=== PATIENT | male | born 1960 ===

== ENCOUNTER 2024-04-30 14:47 | Outpatient (BNV) | payer OTHER, BC, SELFPAY | END 2024-05-05 15:55 | PROVIDERS: Admitting Provider Psychiatry & Neurology Psychiatry; PCP Physician Assistant Medical; Responsible Provider Registered Nurse; Visit Provider Internal Medicine Cardiovascular Disease | DX: R07.9 Chest pain, unspecified (principal) | CPT/HCPCS: 93010 ==

== ENCOUNTER 2024-04-30 14:47 | Inpatient (IN) | payer OTHER, BC, SELFPAY ==
--- NOTE | ~2024-04-30 | CT_ITS ---
EXAMINATION: CT HEAD WITHOUT CONTRAST CLINICAL INFORMATION: Unwitnessed fall. 63-year-old male. COMPARISON: None available. TECHNIQUE: Contiguous axial imaging was performed from the skull base to vertex without intravenous administration of contrast. This CT examination was performed using dose optimization techniques as appropriate, variously including the following: *Automated exposure control *Adjustment of mA and/or kV according to patient size (this includes techniques or standardized protocols for targeted exams where dose is matched to indication/reason for exam; i.e. extremities or head) *Use of iterative reconstruction technique FINDINGS: There is no evidence of intracranial hemorrhage or extra-axial fluid collection. There is no mass effect, or edema. No CT evidence of acute territorial infarct. There is mild bilateral frontal lobe atrophy, out of proportion to the remainder of the brain. Otherwise, ventricles, sulci, and cisterns are normal in size and configuration for patient age. No hydrocephalus. No midline shift. Negative hyperdense MCA sign. Negative insular ribbon sign. Minimal low-density supratentorial white matter changes, in keeping with mild small vessel ischemia. Normal sella noted. Mild atheromatous calcification of the bilateral carotid siphons and V4 segments vertebral arteries bilaterally. Globes and orbital contents image normally. Extracranial soft tissues demonstrate a right paramedian occipital scalp subcutaneous nodule measuring 7 mm, most likely a sebaceous cyst. Moderate mucosal thickening seen throughout both maxillary and ethmoid sinuses, as well as within both frontal recesses. No definite air-fluid levels. The remainder of the paranasal sinuses, mastoid air cells, and tympanic cavities are normally aerated. No suspicious bony abnormalities. No fracture is seen. There are several maxillary periapical lucencies bilaterally. CT/CT head/brain wo IV con IMPRESSION: 1. No acute intracranial abnormalities. No fracture seen. 2. Mild bilateral frontal lobe atrophy. 3. Paranasal sinus disease maxillary and ethmoid sinuses. No definite air-fluid levels. Electronically signed by: Meek Oliveira MD 05/01/2024 09:14 AM [facility] [place] [place]
--- NOTE | ~2024-04-30 | XR_ITS ---
CLINICAL HISTORY: fall 3 view, pelvis and left hip Comparison: None Findings: No acute fracture or dislocation. No significant arthritic change. The soft tissues are unremarkable. IMPRESSION: No acute findings. This document has been electronically signed by: Jama Briones MD on 05/03/2024 19:26:17
[2024-04-30 15:01] VITALS: BP 170/83; PULSE 84; RESP 14; TEMP 37.4; O2SAT 95
[2024-04-30] MEDS: LORazepam 1 MG TABLET 3 MG PO (15:36)
--- NOTE | 2024-04-30 16:48 | HO.PM.IMCN ---
History of Present Illness Data of Consult Service Date: 04/30/24 Primary Care Provider: MOMO Escalona [facility] Reason for consult: Admission H&P Pt is a 63-year-old male with a PMH significant for HTN, HLD, insulin-dependent type 2 diabetes, GERD, alcohol dependence with history of alcohol withdrawal, depression, and anxiety who was admitted to M3 psych unit for increased depression with SI. Pt initially presented to [facility] while acutely intoxicated from alcohol. Hospitalist consult for medical admission H&P. Pt complains of auditory hallucinations. States he normally hears music when going through withdrawal. Also complains of increased anxiety and subjective fever and chills. No nausea or vomiting. Denies diaphoresis. No visual or tactile hallucinations. Denies shortness or breath or difficulty breathing. No chest pain/pressure, palpitations. Denies abdominal pain. Review of Systems Review of Systems: Negative except for that which is stated in the HPI [facility] Medical History (Updated 04/30/24 @ 17:59 by MOMO Tobar) Alcohol dependence GERD (gastroesophageal reflux disease) Insulin dependent type 2 diabetes mellitus HTN (hypertension) Social History Household Members: None Housing: House Do you presently have visiting nurse or other home services: No Patient Tobacco Use Status: Current everyday Tobacco user Tobacco use type: Cigarette Cigarettes Per Day: 5 Smoked in Last 30 Days: Yes Patient Interested in Nicotine Replacement: Yes Patient Given Instructions on How to Stop Smoking: Yes Date Education Initiated: 04/30/24 Second Hand Smoke Exposure: No Use of substances other than those prescribed or required for medical reasons: No Currently Displaying Signs/Symptoms of Drug Intoxication Withdrawal: No Any prior treatment program specific to substance use: No Have you been hit, kicked, punched, or otherwise hurt by someone within the past year? If so, by whom?: No Do you feel safe in your current relationship?: No Current Relationship Is there a partner from a previous relationship who is making you feel unsafe now?: No Are you made to feel afraid or neglected: No Advance Directives: No Advance Directives Information Provided: Yes Recently lost weight without trying: Yes How much weight loss: 2-13 pounds Eating poorly because of decreased appetite: No Nutrition screen score: 3 Poor oral hygiene: No Meds Allergies Allergy/AdvReac Type Severity Reaction Status Date / Time morphine Allergy Unknown Verified 04/30/24 15:21 Penicillins Allergy Unknown Verified 04/30/24 15:20 Active Medications: Current Medications Acetaminophen (Acetaminophen 325 Mg Tablet) 650 mg PO Q6H PRN PRN Reason: Headache/Pain Mild Scale (1-3) Al Hydroxide/Mg Hydroxide (Magnesium Hydrox/Alum Hydrox 30 Ml Oral.Susp) 30 ml PO Q6H PRN PRN Reason: Heartburn/Nausea Gabapentin (Gabapentin 300 Mg Capsule) 600 mg PO TID VALERI Glipizide (Glipizide 5 Mg Tablet) 5 mg PO BID VALERI Hydroxyzine HCl (Hydroxyzine Hcl 50 Mg Tablet) 50 mg PO TID VALERI Isosorbide Mononitrate (Isosorbide Mononitrate 30 Mg Tab.Er.24h) 30 mg PO QAM VALERI; Protocol Lorazepam (Lorazepam 1 Mg Tablet) 1 mg PO Q2H PRN PRN Reason: CIWA 8-11 Lorazepam (Lorazepam 1 Mg Tablet) 2 mg PO Q2H PRN PRN Reason: CIWA 12-15 Lorazepam (Lorazepam 1 Mg Tablet) 3 mg PO Q2H PRN PRN Reason: CIWA > 15, and call MD Last Admin: 04/30/24 15:36 Dose: 3 mg Magnesium Hydroxide (Milk Of Magnesia 30 Ml Oral.Susp) 30 ml PO DAILY PRN PRN Reason: Constipation Melatonin (Melatonin 3 Mg Tablet) 3 mg PO BEDTIME PRN PRN Reason: insomnia Metoprolol Succinate (Metoprolol Succinate Er 50 Mg Tab.Er.24h) 50 mg PO DAILY VALERI; Protocol Nicotine (Nicotine 21 Mg Patch.Td24) 21 mg TRANSDERMA DAILY [facility] Nicotine Polacrilex (Nicotine Polacrilex 2 Mg Gum) 4 mg BUCCAL Q2H PRN PRN Reason: Nicotine Cravings Non-Formulary Medication (Fenofibrate Nanocrystallized) 145 mg PO DAILY [facility] Non-Formulary Medication (Pantoprazole) 40 mg PO DAILY VALERI Non-Formulary Medication (Insulin Glargine-Yfgn [Semglee(Insulin Glarg-Yfgn)Pen]) 10 unit SUBCUT BEDTIME VALERI Quetiapine Fumarate (Quetiapine Fumarate 200 Mg Tablet) 200 mg PO BEDTIME VALERI Sertraline HCl (Sertraline Hcl 50 Mg Tablet) 50 mg PO DAILY VALERI Thiamine HCl (Thiamine Hcl 100 Mg Tablet) 100 mg PO DAILY [facility] Trazodone HCl (Trazodone Hcl 100 Mg Tablet) 200 mg PO BEDTIME VALERI Home Medications ?Medication ?Instructions ?Recorded ?Confirmed ?Last Taken ?Type fenofibrate nanocrystallized 145 145 mg PO DAILY 04/30/24 04/30/24 History mg tablet fenofibrate nanocrystallized 145 145 mg PO DAILY 04/30/24 04/30/24 04/30/24 History mg tablet gabapentin 300 mg capsule 300 mg PO TID 04/30/24 04/30/24 04/30/24 History glipizide 5 mg tablet 5 mg PO BID 04/30/24 04/30/24 04/30/24 History hydroxyzine pamoate 50 mg capsule 50 mg PO TID 04/30/24 04/30/24 Unknown History insulin glargine-yfgn 100 unit/mL 10 unit subcut BEDTIME 04/30/24 04/30/24 Unknown History (3 mL) subcutaneous pen (Semglee (insulin glargine-yfgn) Pen) isosorbide mononitrate 30 mg 30 mg PO QAM 04/30/24 04/30/24 History tablet,extended release 24 hr isosorbide mononitrate 30 mg 30 mg PO QAM 04/30/24 04/30/24 04/30/24 History tablet,extended release 24 hr melatonin 3 mg tablet 3 mg PO BEDTIME PRN insomnia 04/30/24 04/30/24 Unknown History metoprolol succinate 50 mg 50 mg PO DAILY 04/30/24 04/30/24 04/30/24 History tablet,extended release 24 hr pantoprazole 40 mg tablet,delayed 40 mg PO DAILY acid reflux 04/30/24 04/30/24 Unknown History release quetiapine 200 mg tablet 200 mg PO BEDTIME 04/30/24 04/30/24 Unknown History sertraline 50 mg tablet 50 mg PO DAILY 04/30/24 04/30/24 Unknown History trazodone 100 mg tablet 200 mg PO BEDTIME 04/30/24 04/30/24 Unknown History Physical Exam Vital Signs and Narrative: Vital Signs: Last Vital Signs Temp 99.4 F 04/30/24 15:01 Pulse 84 04/30/24 15:01 Resp 14 04/30/24 15:01 BP 170/83 H 04/30/24 15:01 Pulse Ox 95 04/30/24 15:01 O2 Del Method Room Air 04/30/24 15:01 General: AOx3, no acute distress Resp: CTA bilaterally CVS: S1, S2, RRR GI: +BS, NT, no distention Skin: Warm, dry Neuro: Cranial nerves II-XII grossly intact bilaterally. Motor grossly intact bilaterally Extremities: No edema Psych: Flat affect Results Labs 04/30/24 16:41 Assessment and Plan (1) Medical clearance for psychiatric admission: Status: Acute Plan Pt is a 63-year-old male with a PMH significant for HTN, HLD, insulin-dependent type 2 diabetes, peripheral neuropathy, GERD, alcohol dependence with history of alcohol withdrawal, depression, and anxiety who was admitted to M3 psych unit for increased depression with SI. Pt initially presented to [facility] ED while acutely intoxicated from alcohol. Hospitalist consult for medical admission H&P. Mood disorder Plan as per psychiatry HTN Continue metoprolol Insulin-dependent type 2 diabetes Continue glipizide, Lantus Will place on sliding scale insulin Encourage diabetic diet and diabetic snacking HLD Continue fenofibrate Peripheral neuropathy Continue gabapentin Thank you for allowing us to participate in the care of this patient. Signing off at this time. Please re-consult if any acute complaints or issues arise.
[2024-04-30 17:04] LABS: Alanine Aminotransferase 19 U/L (0-40); Albumin Level 4.1 g/dL (3.5-5.0); Alkaline Phosphatase 70 U/L (39-117); Anion Gap 10 (12-20); Aspartate Amino Transferase 38 U/L (5-37); Bilirubin Total 1.1 mg/dL (0.0-1.0); Blood Urea Nitrogen 15 mg/dL (9-16); Calcium 8.7 mg/dL (8.4-10.2); Carbon Dioxide 26 mmol/L (22-29); Chloride 102 mmol/L (96-108); Estimated Glomerular Filt Rate > 60; Glucose Random 107 mg/dL (60-115); Potassium 3.5 mmol/L (3.3-5.1); Sodium 134 mmol/L (135-145); Total Protein 6.6 g/dL (6.5-8.0)
[2024-04-30] MEDS: hydrOXYzine HCL 50 MG TABLET PO ×2 (17:28→21:12)
[2024-04-30] MEDS: Gabapentin 300 MG CAPSULE 600 MG PO ×2 (17:28→21:12)
[2024-04-30] MEDS: LORazepam 1 MG TABLET 2 MG PO (17:29)
[2024-04-30 17:48] VITALS: BMI 31.9
--- NOTE | 2024-04-30 18:58 | PC.ADMIT ---
Michael is a 63 y/o male that? was admitted to M3 at 1455 from [facility] on CV for treatment of MDD and ETOH use d/o.? Precipitant of admission include? a recent increase in ETOH and suicidal thoughts with a plan by O?D on medications, Pt called his RN at the OR and expressed his feelings of wanting to kill himself. Pt currently lives alone in his home. Hx of suicide attempts by drinking etoh and taking sudafed and trazodone a month ago.? Pt denied Si or HI at this time, pt stated ?I feel safe here so far?.? Pt was alert and oriented x3. Pt was calm and cooperative with the admission process.? Mood is depressed.? Affect is sad and anxious. Pt was tearful at times throughout the assessment. Pt reported goal of admission was to ?stop this stupidity I keep doing?.? Pt reported AH where he hears music playing.? Hx of PTSD.? Pt reported a 10lb unintentional weight loss recently.? Thought process is linear.? Pt reported the last drink was before admission on 04/29/24, he had about 2 pints of rum. BAL 361. Pt reported hx of seizures w/ withdrawal.? Pt has a hx of HTN, acid reflux, diabetes and R aortic stent.? Pt was placed on 5 min checks for safety. Pt was compliant with skin check, R madrigal and upper leg healing scabs r/t recent falls. Pt has an allergy to morphine and penicillins.?? Declined Flu shot, already immunized this season.? Pt was placed on a CIWA Q2H. Scored an 18 and 12.? POC QID.? Pt reported multiple falls recently.
[2024-04-30 20:00] VITALS: BP 150/72; PULSE 77; RESP 16; TEMP 37.9; O2SAT 95
[2024-04-30 20:28] LABS: Glucose, Whole Blood 169 mg/dL (60-115)
[2024-04-30] MEDS: Insulin Glargine,Hum.rec.anlog 100 UNIT/ML 10 ML VIAL 10 UNIT SUBCUT (21:10)
[2024-04-30] MEDS: Insulin Lispro 100 UNIT/ML 3 ML VIAL SUBCUT (21:11)
[2024-04-30] MEDS: glipiZIDE 5 MG TABLET PO (21:12)
[2024-04-30] MEDS: LORazepam 1 MG TABLET PO (21:12)
[2024-04-30] MEDS: traZODone HCL 100 MG TABLET 200 MG PO (21:12)
[2024-04-30] MEDS: QUEtiapine Fumarate 200 MG TABLET PO (21:12)
--- NOTE | 2024-04-30 23:18 | PC.NURSE ---
Manuelmaribell has order for CPAP @ HS, Respiratory called several times during the shift, reported to be actively in an emergency in ER, message left to call unit R/T CPAP application. Patient experiencing no issues and was unaware that he was ordered to have CPAP placed. Will F/U with Respiratory again.
[2024-05-01 01:30] VITALS: RESP 16
[2024-05-01] MEDS: LORazepam 1 MG TABLET 2 MG PO ×4 (06:16→20:40)
[2024-05-01] MEDS: Omeprazole 20 MG CAPSULE.DR PO (06:17)
--- NOTE | 2024-05-01 06:22 | PC.NURSE ---
Michael was observed on the floor on laying on his left side ! 604 when staff entered to give morning med and to complete CIWA assessment. He stated he got up to go the BR and after using while standing at the sink to wash his hands he lost his balance. Fall assessment completed, FROM all extremities, no bruising or hematoma, skin integrity intact, A/O x 2, VS taken, ambulation unsteady D/T ETOH withdrawal, assisted to bed, dry clothes and bed linen changed. On-Call MD Burr, Morphologist Prerna and Hospitalist Dr. Yuan updated. Dr. Yuan on unit @ 0640 to assess, CT head to be ordered.
--- NOTE | 2024-05-01 06:42 | PM.EVENT ---
Event Note Date of Service: 05/01/24 Event Note: Was notified by the nurse that the patient had an unwitnessed fall. States he was in the bathroom when he fell as he lost his balance. Denies chest pain or palpitations prior to the fall. Denies jerking movement of extremities. No tongue bite. No lightheadedness prior to the fall. Did not lose consciousness prior to the fall. Will obtain CT head as he hit his head Time Spent With Patient Time: Total time managing care of this patient today ____ minutes.
[2024-05-01 07:59] LABS: Glucose, Whole Blood 112 mg/dL (60-115)
[2024-05-01 08:26] VITALS: BP 179/91; PULSE 72; RESP 16; TEMP 36.8; O2SAT 95
[2024-05-01] MEDS: Nicotine 21 MG PATCH.TD24 TRANSDERMA (09:20)
[2024-05-01] MEDS: Thiamine HCL 100 MG TABLET PO (09:20)
[2024-05-01] MEDS: Metoprolol Succinate ER 50 MG TAB.ER.24H PO (09:20)
[2024-05-01] MEDS: Sertraline HCL 50 MG TABLET PO (09:20)
[2024-05-01] MEDS: Gabapentin 300 MG CAPSULE 600 MG PO ×3 (09:20→20:40)
[2024-05-01] MEDS: glipiZIDE 5 MG TABLET PO ×2 (09:21→20:39)
[2024-05-01] MEDS: Isosorbide Mononitrate 30 MG TAB.ER.24H PO (09:21)
[2024-05-01] MEDS: hydrOXYzine HCL 50 MG TABLET PO ×3 (09:22→20:40)
--- NOTE | 2024-05-01 09:27 | P.HPPS_ITS ---
HPI Date of Service: 05/01/24 Chief Complaint: Unspec depressive disorder, unspec alcohol use d/o Sources of Information: patient interviewed, chart reviewed and crisis/core team assessment reviewed HPI Subjective Notes: Brito Warning and Conditional Voluntary Narrative: Patient is a 63-year-old male with history MDD and alcohol use disorder who presented to [facility] ER via ambulance due to suicidal ideation and alcohol use. Called [place] nurse and stating he wanted to kill himself. Per crisis report, patient reports he had a plan to take pills but denied intent. He reported drinking a pint and a half of rum prior to arrival to ED. patient reports drinking a pint and a half daily. History of suicide attempt a month ago via overdose on trazodone and Sudafed and was admitted to [facility]. When asked what triggered the intentional overdose patient stated the holidays . Denies HI /. During admission assessment, patient was in and out falling asleep. Difficult to understand at times due to mumbling. He reports depression and anxiety and states that when he is intoxicated he becomes suicidal. When discussing his sleep patient reports he usually passes out from drinking . He reports not eating well and forgetting to take his medications daily. He reports drinking a pt and a half of rum daily for the last 5 years. Denies any other substance use. History of alcohol withdrawal seizures. Currently on CIWA protocol. Per nursing patient has fallen twice in the last 24 hours; was placed on 1:1 and PT consult was placed to determine need for walker. Nursing to obtain orthos. Past Psychiatric History: hx of SA via OD on trazodone and Sudafed (March 2024) History of inpatient psychiatric admissions most recently at [facility] month ago. History of detox admissions. Patient reports he goes to the [place] on [facility] in [place] for outpatient services and recently started seeing a therapist named Brad Alvarez. Medical Evaluation Reviewed: Yes [facility] Medical History (Updated 05/01/24 @ 15:09 by Tammy Katz NP) Alcohol dependence GERD (gastroesophageal reflux disease) Insulin dependent type 2 diabetes mellitus HTN (hypertension) Family History: unknown Social History: lives alone. . 3 kids. works as investment accountant. Substance History: Drinks a pint and half of alcohol daily. Denies any other substance use. Trauma History: Denies Diagnostics Vital Signs (24Hr): Vital Signs - 24 hr 04/30/24 15:01 04/30/24 20:00 05/01/24 08:26 Temperature 99.4 F 100.3 F 98.2 F Pulse Rate 84 77 72 Respiratory Rate 14 16 16 Blood Pressure 170/83 H 150/72 H 179/91 H Pulse Oximetry 95 95 95 Oxygen Delivery Method Room Air Room Air Room Air BMI result Body Mass Index 31.9 Labs 04/30/24 16:41 Labs: Laboratory Results - last 48 hr 04/30/24 04/30/24 05/01/24 16:41 20:24 07:51 Sodium 134 L Potassium 3.5 Chloride 102 Carbon Dioxide 26 Anion Gap 10 L BUN 15 Creatinine 0.90 Estim Creat Clear Calc TNP Estimated GFR > 60 POC Glucose 169 H 112 Random Glucose 107 Calcium 8.7 Total Bilirubin 1.1 H AST 38 H ALT 19 Alkaline Phosphatase 70 Total Protein 6.6 Albumin 4.1 Imaging Radiology Impressions: ITS Impressions Head CT 05/01/24 08:49 IMPRESSION: 1. No acute intracranial abnormalities. No fracture seen. 2. Mild bilateral frontal lobe atrophy. 3. Paranasal sinus disease maxillary and ethmoid sinuses. No definite air-fluid levels. Electronically signed by: Meek Oliveira MD 05/01/2024 09:14 AM [facility] [place] [place] Meds/Allergies Meds Home Medications ?Medication ?Instructions ?Recorded ?Confirmed ?Type fenofibrate nanocrystallized 145 145 mg PO DAILY 04/30/24 History mg tablet fenofibrate nanocrystallized 145 145 mg PO DAILY 04/30/24 04/30/24 History mg tablet gabapentin 300 mg capsule 300 mg PO TID 04/30/24 04/30/24 History glipizide 5 mg tablet 5 mg PO BID 04/30/24 04/30/24 History hydroxyzine pamoate 50 mg capsule 50 mg PO TID 04/30/24 04/30/24 History insulin glargine-yfgn 100 unit/mL 10 unit subcut BEDTIME 04/30/24 04/30/24 History (3 mL) subcutaneous pen (Semglee (insulin glargine-yfgn) Pen) isosorbide mononitrate 30 mg 30 mg PO QAM 04/30/24 History tablet,extended release 24 hr isosorbide mononitrate 30 mg 30 mg PO QAM 04/30/24 04/30/24 History tablet,extended release 24 hr melatonin 3 mg tablet 3 mg PO BEDTIME PRN insomnia 04/30/24 04/30/24 History metoprolol succinate 50 mg 50 mg PO DAILY 04/30/24 04/30/24 History tablet,extended release 24 hr pantoprazole 40 mg tablet,delayed 40 mg PO DAILY acid reflux 04/30/24 04/30/24 History release quetiapine 200 mg tablet 200 mg PO BEDTIME 04/30/24 04/30/24 History sertraline 50 mg tablet 50 mg PO DAILY 04/30/24 04/30/24 History trazodone 100 mg tablet 200 mg PO BEDTIME 04/30/24 04/30/24 History Allergies Allergies Allergy/AdvReac Type Severity Reaction Status Date / Time morphine Allergy Unknown Verified 04/30/24 15:21 Penicillins Allergy Unknown Verified 04/30/24 15:20 Mental Status Exam Mental Status Exam Patient Appearance: Disheveled Patient Orientation: Person, Place and Situation Level of Consciousness: Drowsy Patient Behavior: Cooperative and Sedated Mood Description: Blunted Affect Description: Blunted Ability to Follow Directions: Good Speech Pattern: Mumbled Hallucinations: None Delusions: Not Present Thought Process: Intact Thought Content: positive for Intact Judgement: Poor Assessment & Plan Assessment & Plan (1) MDD (major depressive disorder), recurrent episode, severe: Status: Acute Code(s): F33.2 - Major depressive disorder, recurrent severe without psychotic features (2) Alcohol use disorder: Status: Acute Code(s): F10.90 - Alcohol use, unspecified, uncomplicated Plan Patient is a 63-year-old male with history MDD and alcohol use disorder who presented to [facility] ER via ambulance due to suicidal ideation and alcohol use[facility] and stating [facility] himself. Plan: CV 1:1 Continue home medications [place] protocol Obtain collateral Encourage groups Consult to PT to determine need for walker Consult to addiction medicine Discharge planning Patient educated on: diagnosis, medication risk/benefits and substance abuse Reason for continued inpatient stay Substantial Risk for: harm to self and med/psych decompensation Statement Statement: I have reviewed the history and physical and performed a pertinent examination on my patient. No changes have occurred unless specified. If the History and Physical was not performed prior to admission, the Hospitalist's service will be consulted for completing the admission physical. Time Spent With Patient Time: Total time managing care of this patient today _60___ minutes.
[2024-05-01] MEDS: Fenofibrate 160 MG TABLET PO (10:21)
[2024-05-01 11:35] LABS: Glucose, Whole Blood 138 mg/dL (60-115)
[2024-05-01] MEDS: Ondansetron ODT 8 MG TAB.RAPDIS TRANSLINGU (11:50)
[2024-05-01] MEDS: LORazepam 1 MG TABLET PO ×2 (11:50→18:10)
[2024-05-01] MEDS: Ibuprofen 600 MG TABLET PO (11:50)
--- NOTE | 2024-05-01 13:15 | MHC.CLN ---
RE: CONSULT HT 5'10 WT 222# IBW 166+/-10% PT IS 134% IBW INDICATES OBESE FOR HT BMI 31.9 OBESE PT WITH NO PREVIOUS WT HX PT REPORTS 10# WT LOSS STUDENT ACTIVITIES DIRECTOR, NOT A SIGNIFICANT WT CHANGE REGULAR DIET REVIEWED LABS-UNREMARKABLE SKIN INTACT MONITOR PO INTAKE IF PO INTAKE <25% X 3 DAYS, RECOMMEND ADDING SUPPLEMENT: ENSURE BID NO NEW ORDERS AT THIS TIME
--- NOTE | 2024-05-01 13:47 | PC.NURSE ---
Pt had a fall in room after getting out of his chair. Pt stood up and became shaky according to 1:1. Staff slowed fall backwards, lowering pt to the floor. Pt reports feeling dizzy . MD notified and PT consult to be placed r/t de-conditioning. Ortho BP checked, sitting 139/83 P 88, Standing BP 127/73 P91. Pt reported mild left buttock pain, but reported after moving that he was ok. Pt had no visible injury.
[2024-05-01 16:00] VITALS: BP 148/82; PULSE 73
[2024-05-01 17:25] LABS: Glucose, Whole Blood 113 mg/dL (60-115)
[2024-05-01 20:00] VITALS: BP 148/88; BP 153/96; PULSE 72; RESP 16; TEMP 36.8; O2SAT 94
[2024-05-01 20:04] LABS: Glucose, Whole Blood 150 mg/dL (60-115)
[2024-05-01] MEDS: Insulin Glargine,Hum.rec.anlog 100 UNIT/ML 10 ML VIAL 10 UNIT SUBCUT (20:39)
[2024-05-01] MEDS: traZODone HCL 100 MG TABLET 200 MG PO (20:40)
[2024-05-01] MEDS: Acetaminophen 325 MG TABLET 650 MG PO (20:40)
[2024-05-01] MEDS: QUEtiapine Fumarate 200 MG TABLET PO (20:40)
[2024-05-02] VITALS (9 sets, daily range): BP systolic 120–178; BP diastolic 69–96; PULSE 62–86; RESP 13–18; TEMP 36.3–37; O2SAT 90–95
[2024-05-02] MEDS: Omeprazole 20 MG CAPSULE.DR PO (05:57)
[2024-05-02] MEDS: LORazepam 1 MG TABLET PO ×4 (05:57→23:22)
[2024-05-02] MEDS: LORazepam 1 MG TABLET 2 MG PO ×3 (08:20→20:40)
[2024-05-02] MEDS: Fenofibrate 160 MG TABLET PO (08:20)
[2024-05-02] MEDS: Isosorbide Mononitrate 30 MG TAB.ER.24H PO (08:21)
[2024-05-02] MEDS: Metoprolol Succinate ER 50 MG TAB.ER.24H PO (08:21)
[2024-05-02] MEDS: Gabapentin 300 MG CAPSULE 600 MG PO ×3 (08:21→20:40)
[2024-05-02] MEDS: Sertraline HCL 50 MG TABLET PO (08:22)
[2024-05-02] MEDS: glipiZIDE 5 MG TABLET PO ×2 (08:22→17:05)
[2024-05-02] MEDS: Thiamine HCL 100 MG TABLET PO (08:22)
[2024-05-02] MEDS: hydrOXYzine HCL 50 MG TABLET PO ×2 (08:22→20:40)
[2024-05-02] MEDS: Nicotine 21 MG PATCH.TD24 TRANSDERMA (08:23)
[2024-05-02 08:26] LABS: Glucose, Whole Blood 133 mg/dL (60-115)
[2024-05-02 08:35] LABS: Cholesterol 193 mg/dL (<200); HDL Cholesterol 53 mg/dL (>40); LDL Cholesterol Calculated 80 mg/dL (<100); Triglycerides 301 mg/dL (<150)
--- NOTE | 2024-05-02 10:51 | HO.PSYCHPN ---
Subjective Subjective Date of Service: 05/02/24 Reason For Visit: Unspec depressive disorder, unspec alcohol use d/o Subjective Notes: Conditional Voluntary Interim History: Continues similar to yesterday. continues scoring on CIWA. disheveled. patient in and out falling asleep. Difficult to understand at times due to low volume in speech and mumbling. Pt stated he just wants to sleep ; will continue on CIWA. Decrease hydroxyzine to 50mg PO BID. Medication Compliance: Yes Side effects from medications: No Attending Groups: No Review of Systems Constitutional: Reports as per HPI Eyes: Reports as per HPI Reports as per HPI Cardiovascular: Reports as per HPI Respiratory: Reports as per HPI Gastrointestinal: Reports as per HPI Genitourinary: Reports as per HPI Musculoskeletal: Reports as per HPI Skin/Breast: Reports as per HPI Reports as per HPI Psychiatric: Reports as per HPI Endocrine: Reports as per HPI Hematologic/Lymphatic: Reports as per HPI Allergic/Immunologic: Reports as per HPI Mental Status Exam Mental Status Exam Patient Appearance: Disheveled Patient Orientation: Person, Place and Situation Level of Consciousness: Drowsy Patient Behavior: Sedated and Fatigued Mood Description: Blunted Affect Description: Blunted Ability to Follow Directions: Good Speech Pattern: Soft-Spoken and Mumbled Diagnostics Vital Signs (24Hr): Vital Signs - 24 hr 05/01/24 16:00 05/01/24 20:00 05/01/24 20:00 Temperature 98.3 F Pulse Rate 73 72 72 Respiratory Rate 16 Blood Pressure 148/82 H 148/88 H 153/96 H Pulse Oximetry 94 Oxygen Delivery Method Room Air 05/02/24 00:00 05/02/24 08:00 05/02/24 08:00 Temperature 98.3 F Pulse Rate 86 62 62 Respiratory Rate 14 Blood Pressure 132/79 172/77 H 172/77 H Pulse Oximetry 94 Oxygen Delivery Method Room Air 05/02/24 10:31 Temperature 97.4 F Pulse Rate 70 Respiratory Rate 14 Blood Pressure 120/69 Pulse Oximetry 90 L Oxygen Delivery Method Room Air BMI result Body Mass Index 31.9 Labs 04/30/24 16:41 Labs: Laboratory Results - last 48 hr 04/30/24 04/30/24 05/01/24 16:41 20:24 07:51 Sodium 134 L Potassium 3.5 Chloride 102 Carbon Dioxide 26 Anion Gap 10 L BUN 15 Creatinine 0.90 Estim Creat Clear Calc TNP Estimated GFR > 60 POC Glucose 169 H 112 Random Glucose 107 Calcium 8.7 Total Bilirubin 1.1 H AST 38 H ALT 19 Alkaline Phosphatase 70 Total Protein 6.6 Albumin 4.1 Triglycerides Cholesterol LDL Cholesterol, Calc HDL Cholesterol 05/01/24 05/01/24 05/01/24 11:28 17:18 19:59 Sodium Potassium Chloride Carbon Dioxide Anion Gap BUN Creatinine Estim Creat Clear Calc Estimated GFR POC Glucose 138 H 113 150 H Random Glucose Calcium Total Bilirubin AST ALT Alkaline Phosphatase Total Protein Albumin Triglycerides Cholesterol LDL Cholesterol, Calc HDL Cholesterol 05/02/24 05/02/24 08:11 08:18 Sodium Potassium Chloride Carbon Dioxide Anion Gap BUN Creatinine Estim Creat Clear Calc Estimated GFR POC Glucose 133 H Random Glucose Calcium Total Bilirubin AST ALT Alkaline Phosphatase Total Protein Albumin Triglycerides 301 H Cholesterol 193 LDL Cholesterol, Calc 80 HDL Cholesterol 53 Imaging Radiology Impressions: ITS Impressions Head CT 05/01/24 08:49 IMPRESSION: 1. No acute intracranial abnormalities. No fracture seen. 2. Mild bilateral frontal lobe atrophy. 3. Paranasal sinus disease maxillary and ethmoid sinuses. No definite air-fluid levels. Electronically signed by: Meek Oliveira MD 05/01/2024 09:14 AM [facility] Medications Current Medications Acetaminophen (Acetaminophen 325 Mg Tablet) 650 mg PO Q6H PRN PRN Reason: Headache/Pain Mild Scale (1-3) Last Admin: 05/01/24 20:40 Dose: 650 mg Al Hydroxide/Mg Hydroxide (Magnesium Hydrox/Alum Hydrox 30 Ml Oral.Susp) 30 ml PO Q6H PRN PRN Reason: Heartburn/Nausea Fenofibrate (Fenofibrate 160 Mg Tablet) 160 mg PO DAILY [facility] Last Admin: 05/02/24 08:20 Dose: 160 mg Gabapentin (Gabapentin 300 Mg Capsule) 600 mg PO TID [facility] Last Admin: 05/02/24 08:21 Dose: 600 mg Glipizide (Glipizide 5 Mg Tablet) 5 mg PO BID [facility] Last Admin: 05/02/24 08:22 Dose: 5 mg Glucose (Glucose Gel 15 Gm Gel..Gram.) 15 gm PO Q15M PRN; Protocol PRN Reason: per Hypoglycemia Standing Ord. Hydroxyzine HCl (Hydroxyzine Hcl 50 Mg Tablet) 50 mg PO TID [facility] Last Admin: 05/02/24 08:22 Dose: 50 mg Dextrose (D10) 250 mls @ 750 mls/hr IV Q15M PRN; Protocol PRN Reason: per Hypoglycemia Standing Ord. Ibuprofen (Ibuprofen 600 Mg Tablet) 600 mg PO Q8H PRN PRN Reason: Pain, Moderate(Pain Scale 4-6) Last Admin: 05/01/24 11:50 Dose: 600 mg Insulin Glargine (Insulin Glargine,Hum.Rec.Anlog 100 Unit/Ml 10 Ml Vial) 10 unit SUBCUT BEDTIME [facility] Last Admin: 05/01/24 20:39 Dose: 10 unit Insulin Human Lispro (Insulin Lispro 100 Unit/Ml 3 Ml Vial) 0 unit SUBCUT QIDACHS [facility]; Protocol Last Admin: 05/02/24 08:29 Dose: Not Given Isosorbide Mononitrate (Isosorbide Mononitrate 30 Mg Tab.Er.24h) 30 mg PO DAILY [facility]; Protocol Last Admin: 05/02/24 08:21 Dose: 30 mg Lorazepam (Lorazepam 1 Mg Tablet) 1 mg PO Q2H PRN PRN Reason: CIWA 8-11 Last Admin: 05/02/24 05:57 Dose: 1 mg Lorazepam (Lorazepam 1 Mg Tablet) 2 mg PO Q2H PRN PRN Reason: CIWA 12-15 Last Admin: 05/02/24 08:20 Dose: 2 mg Lorazepam (Lorazepam 1 Mg Tablet) 3 mg PO Q2H PRN PRN Reason: CIWA > 15, and call Last Admin: 04/30/24 15:36 Dose: 3 mg Magnesium Hydroxide (Milk Of Magnesia 30 Ml Oral.Susp) 30 ml PO DAILY PRN PRN Reason: Constipation Melatonin (Melatonin 3 Mg Tablet) 3 mg PO BEDTIME PRN PRN Reason: insomnia Metoprolol Succinate (Metoprolol Succinate Er 50 Mg Tab.Er.24h) 50 mg PO DAILY [facility]; Protocol Last Admin: 05/02/24 08:21 Dose: 50 mg Nicotine (Nicotine 21 Mg Patch.Td24) 21 mg TRANSDERMA DAILY [facility] Last Admin: 05/02/24 08:23 Dose: 21 mg Nicotine Polacrilex (Nicotine Polacrilex 2 Mg Gum) 4 mg BUCCAL Q2H PRN PRN Reason: Nicotine Cravings Omeprazole (Omeprazole 20 Mg Capsule.Dr) 20 mg PO DAILY@0630 [facility] Last Admin: 05/02/24 05:57 Dose: 20 mg Ondansetron HCl (Ondansetron Odt 8 Mg Tab.Rapdis) 8 mg TRANSLINGU Q12H PRN PRN Reason: Nausea and Vomiting Last Admin: 05/01/24 11:50 Dose: 8 mg Quetiapine Fumarate (Quetiapine Fumarate 200 Mg Tablet) 200 mg PO BEDTIME [facility] Last Admin: 05/01/24 20:40 Dose: 200 mg Sertraline HCl (Sertraline Hcl 50 Mg Tablet) 50 mg PO DAILY [facility] Last Admin: 05/02/24 08:22 Dose: 50 mg Thiamine HCl (Thiamine Hcl 100 Mg Tablet) 100 mg PO DAILY [facility] Last Admin: 05/02/24 08:22 Dose: 100 mg Trazodone HCl (Trazodone Hcl 100 Mg Tablet) 200 mg PO BEDTIME [facility] Last Admin: 05/01/24 20:40 Dose: 200 mg Allergies Allergies Allergy/AdvReac Type Severity Reaction Status Date / Time morphine Allergy Unknown Verified 04/30/24 15:21 Penicillins Allergy Unknown Verified 04/30/24 15:20 Assessment & Plan Assessment & Plan (1) MDD (major depressive disorder), recurrent episode, severe: Status: Acute Code(s): F33.2 - Major depressive disorder, recurrent severe without psychotic features (2) Alcohol use disorder: Status: Acute Code(s): F10.90 - Alcohol use, unspecified, uncomplicated Plan Patient is a 63-year-old male with history MDD and alcohol use disorder who presented to [facility] ER via ambulance due to suicidal ideation and alcohol use. [facility] and stating he [facility] himself. Plan: CV 1:1 Continue home medications CIWA protocol Obtain collateral Encourage groups Consult to PT to determine need for walker Consult to addiction medicine Discharge planning 05/02: Continues similar to yesterday. continues scoring on CIWA. disheveled. patient in and out falling asleep. Difficult to understand at times due to low volume in speech and mumbling. Pt stated he just wants to sleep ; will continue on CIWA. Decrease hydroxyzine to 50mg PO BID. Patient educated on: medication risk/benefits Reason for continued inpatient stay Substantial Risk for: med/psych decompensation Time Spent With Patient Time: Total time managing care of this patient today _20___ minutes.
[2024-05-02 11:57] LABS: Glucose, Whole Blood 169 mg/dL (60-115)
[2024-05-02] MEDS: Insulin Lispro 100 UNIT/ML 3 ML VIAL SUBCUT (12:18)
--- NOTE | 2024-05-02 14:21 | PM.EVENT ---
Event Note Date of Service: 05/02/24 Event Note: Addiction consult placed for patient with AUD to discussed medication options Chart reviewed, patient still scoring on CIWA and receiving withdrawal medications Will see on Sunday Time Spent With Patient Time: Total time managing care of this patient today ____ minutes.
[2024-05-02 16:49] LABS: Glucose, Whole Blood 118 mg/dL (60-115)
[2024-05-02 20:34] LABS: Glucose, Whole Blood 143 mg/dL (60-115)
[2024-05-02] MEDS: Melatonin 3 MG TABLET PO (20:40)
[2024-05-02] MEDS: traZODone HCL 100 MG TABLET 200 MG PO (20:40)
[2024-05-02] MEDS: QUEtiapine Fumarate 200 MG TABLET PO (20:40)
[2024-05-02] MEDS: Insulin Glargine,Hum.rec.anlog 100 UNIT/ML 10 ML VIAL 10 UNIT SUBCUT (20:47)
[2024-05-03] VITALS (8 sets, daily range): BP systolic 162–191; BP diastolic 81–102; PULSE 65–83; RESP 18–22; TEMP 36.7; O2SAT 91–97
[2024-05-03] MEDS: LORazepam 1 MG TABLET PO ×2 (03:51→11:21)
[2024-05-03 05:58] LABS: Glucose, Whole Blood 170 mg/dL (60-115)
[2024-05-03] MEDS: Omeprazole 20 MG CAPSULE.DR PO (07:00)
[2024-05-03 07:45] LABS: Glucose, Whole Blood 135 mg/dL (60-115)
[2024-05-03] MEDS: hydrOXYzine HCL 50 MG TABLET PO ×2 (08:40→18:58)
[2024-05-03] MEDS: Isosorbide Mononitrate 30 MG TAB.ER.24H PO (08:40)
[2024-05-03] MEDS: Thiamine HCL 100 MG TABLET PO (08:40)
[2024-05-03] MEDS: Sertraline HCL 50 MG TABLET PO (08:40)
[2024-05-03] MEDS: Fenofibrate 160 MG TABLET PO (08:40)
[2024-05-03] MEDS: Gabapentin 300 MG CAPSULE 600 MG PO ×3 (08:41→18:58)
[2024-05-03] MEDS: Nicotine 21 MG PATCH.TD24 TRANSDERMA (08:41)
[2024-05-03] MEDS: Metoprolol Succinate ER 50 MG TAB.ER.24H PO (08:41)
[2024-05-03] MEDS: glipiZIDE 5 MG TABLET PO ×2 (08:41→18:58)
--- NOTE | 2024-05-03 11:31 | P.PNPSI_ITS ---
Subjective Subjective Date of Service: 05/03/24 Reason For Visit: Unspec depressive disorder, unspec alcohol use d/o Subjective Notes: Conditional Voluntary Interim History: The nursing staff reported the patient remains on CIWA protocol every 2 hours. He had been incontinent of urine yesterday. He remains pleasant and cooperative but on one-to-one for fall risk. On interview the patient reported that he is feeling okay but he looks very impaired. We are changing the CIWA to q.4 hours. Mental Status Exam Mental Status Exam Patient Appearance: Appropriate and Unkempt Patient Orientation: Person and Situation Level of Consciousness: Awake Patient Behavior: Passive Mood Description: Withdrawn Affect Description: Constricted Ability to Follow Directions: Good Speech Pattern: Impoverished Hallucinations: None Delusions: Not Present Thought Process: Distracted and Slowed Thinking Thought Content: positive for [place] and positive for Poverty of Content Judgement: Poor Diagnostics Vital Signs (24Hr): Vital Signs - 24 hr 05/02/24 12:00 05/02/24 14:43 05/02/24 16:00 Temperature 97.8 F Pulse Rate 65 62 66 Respiratory Rate 14 Blood Pressure 158/90 H 124/76 178/96 H Pulse Oximetry 94 Oxygen Delivery Method Room Air 05/02/24 18:42 05/02/24 19:40 05/02/24 20:30 Temperature 97.7 F 98.6 F Pulse Rate 65 67 70 Respiratory Rate 13 18 Blood Pressure 176/88 H 162/84 H 155/82 H Pulse Oximetry 95 94 Oxygen Delivery Method Room Air Room Air 05/03/24 01:49 05/03/24 03:43 05/03/24 08:30 Temperature Pulse Rate 65 71 Respiratory Rate 18 Blood Pressure 162/81 H 190/102 H Pulse Oximetry Oxygen Delivery Method BMI result Body Mass Index 31.9 Labs 04/30/24 16:41 Labs: Laboratory Results - last 48 hr 05/01/24 05/01/24 05/01/24 11:28 17:18 19:59 POC Glucose 138 H 113 150 H Triglycerides Cholesterol LDL Cholesterol, Calc HDL Cholesterol 05/02/24 05/02/24 05/02/24 08:11 08:18 11:52 POC Glucose 133 H 169 H Triglycerides 301 H Cholesterol 193 LDL Cholesterol, Calc 80 HDL Cholesterol 53 05/02/24 05/02/24 05/03/24 16:43 20:21 05:48 POC Glucose 118 H 143 H 170 H Triglycerides Cholesterol LDL Cholesterol, Calc HDL Cholesterol 05/03/24 07:39 POC Glucose 135 H Triglycerides Cholesterol LDL Cholesterol, Calc HDL Cholesterol Imaging Radiology Impressions: ITS Impressions Head CT 05/01/24 08:49 IMPRESSION: 1. No acute intracranial abnormalities. No fracture seen. 2. Mild bilateral frontal lobe atrophy. 3. Paranasal sinus disease maxillary and ethmoid sinuses. No definite air-fluid levels. Electronically signed by: Meek Oliveira MD 05/01/2024 09:14 AM [facility] [place] Medications Medications Current Medications Acetaminophen (Acetaminophen 325 Mg Tablet) 650 mg PO Q6H PRN PRN Reason: Headache/Pain Mild Scale (1-3) Last Admin: 05/01/24 20:40 Dose: 650 mg Al Hydroxide/Mg Hydroxide (Magnesium Hydrox/Alum Hydrox 30 Ml Oral.Susp) 30 ml PO Q6H PRN PRN Reason: Heartburn/Nausea Fenofibrate (Fenofibrate 160 Mg Tablet) 160 mg PO DAILY [facility] Last Admin: 05/03/24 08:40 Dose: 160 mg Gabapentin (Gabapentin 300 Mg Capsule) 600 mg PO TID [facility] Last Admin: 05/03/24 08:41 Dose: 600 mg Glipizide (Glipizide 5 Mg Tablet) 5 mg PO BID@0900,1700 [facility] Last Admin: 05/03/24 08:41 Dose: 5 mg Glucose (Glucose Gel 15 Gm Gel..Gram.) 15 gm PO Q15M PRN; Protocol PRN Reason: per Hypoglycemia Standing Ord. Hydroxyzine HCl (Hydroxyzine Hcl 50 Mg Tablet) 50 mg PO BID [facility] Last Admin: 05/03/24 08:40 Dose: 50 mg Dextrose (D10) 250 mls @ 750 mls/hr IV Q15M PRN; Protocol PRN Reason: per Hypoglycemia Standing Ord. Ibuprofen (Ibuprofen 600 Mg Tablet) 600 mg PO Q8H PRN PRN Reason: Pain, Moderate(Pain Scale 4-6) Last Admin: 05/01/24 11:50 Dose: 600 mg Insulin Glargine (Insulin Glargine,Hum.Rec.Anlog 100 Unit/Ml 10 Ml Vial) 10 unit SUBCUT BEDTIME [facility] Last Admin: 05/02/24 20:47 Dose: 10 unit Insulin Human Lispro (Insulin Lispro 100 Unit/Ml 3 Ml Vial) 0 unit SUBCUT QIDACHS [facility]; Protocol Last Admin: 05/03/24 08:48 Dose: Not Given Isosorbide Mononitrate (Isosorbide Mononitrate 30 Mg Tab.Er.24h) 30 mg PO DAILY [facility]; Protocol Last Admin: 05/03/24 08:40 Dose: 30 mg Lorazepam (Lorazepam 1 Mg Tablet) 1 mg PO Q2H PRN PRN Reason: CIWA 8-11 Last Admin: 05/03/24 11:21 Dose: 1 mg Lorazepam (Lorazepam 1 Mg Tablet) 2 mg PO Q2H PRN PRN Reason: CIWA 12-15 Last Admin: 05/02/24 20:40 Dose: 2 mg Lorazepam (Lorazepam 1 Mg Tablet) 3 mg PO Q2H PRN PRN Reason: CIWA > 15, and call MD Last Admin: 04/30/24 15:36 Dose: 3 mg Magnesium Hydroxide (Milk Of Magnesia 30 Ml Oral.Susp) 30 ml PO DAILY PRN PRN Reason: Constipation Melatonin (Melatonin 3 Mg Tablet) 3 mg PO BEDTIME PRN PRN Reason: insomnia Last Admin: 05/02/24 20:40 Dose: 3 mg Metoprolol Succinate (Metoprolol Succinate Er 50 Mg Tab.Er.24h) 50 mg PO DAILY [facility]; Protocol Last Admin: 05/03/24 08:41 Dose: 50 mg Nicotine (Nicotine 21 Mg Patch.Td24) 21 mg TRANSDERMA DAILY [facility] Last Admin: 05/03/24 08:41 Dose: 21 mg Nicotine Polacrilex (Nicotine Polacrilex 2 Mg Gum) 4 mg BUCCAL Q2H PRN PRN Reason: Nicotine Cravings Omeprazole (Omeprazole 20 Mg Capsule.Dr) 20 mg PO DAILY@0630 [facility] Last Admin: 05/03/24 07:00 Dose: 20 mg Ondansetron HCl (Ondansetron Odt 8 Mg Tab.Rapdis) 8 mg TRANSLINGU Q12H PRN PRN Reason: Nausea and Vomiting Last Admin: 05/01/24 11:50 Dose: 8 mg Quetiapine Fumarate (Quetiapine Fumarate 200 Mg Tablet) 200 mg PO BEDTIME [facility] Last Admin: 05/02/24 20:40 Dose: 200 mg Sertraline HCl (Sertraline Hcl 50 Mg Tablet) 50 mg PO DAILY [facility] Last Admin: 05/03/24 08:40 Dose: 50 mg Thiamine HCl (Thiamine Hcl 100 Mg Tablet) 100 mg PO DAILY [facility] Last Admin: 05/03/24 08:40 Dose: 100 mg Trazodone HCl (Trazodone Hcl 100 Mg Tablet) 200 mg PO BEDTIME PRN PRN Reason: Insomnia Last Admin: 05/02/24 20:40 Dose: 200 mg Allergies Allergies Allergy/AdvReac Type Severity Reaction Status Date / Time morphine Allergy Unknown Verified 04/30/24 15:21 Penicillins Allergy Unknown Verified 04/30/24 15:20 Assessment & Plan Assessment & Plan (1) MDD (major depressive disorder), recurrent episode, severe: Status: Acute Code(s): F33.2 - Major depressive disorder, recurrent severe without psychotic features (2) Alcohol use disorder: Status: Acute Code(s): F10.90 - Alcohol use, unspecified, uncomplicated Plan Patient is a 63-year-old male with history MDD and alcohol use disorder who presented to [facility] ER via ambulance due to suicidal ideation and alcohol use. [facility] and stating he wanted to [facility] himself. Plan: CV 1:1 Continue home medications CIWA protocol Obtain collateral Encourage groups Consult to PT to determine need for walker Consult to addiction medicine Discharge planning 05/02: Continues similar to yesterday. continues scoring on CIWA. disheveled. patient in and out falling asleep. Difficult to understand at times due to low volume in speech and mumbling. Pt stated he just wants to sleep ; will continue on CIWA. Decrease hydroxyzine to 50mg PO BID. 05/03 the nursing staff reported that he start scoring lower on the CIWA still at fall risk on one-to-one. We are changing the CIWA to q.4 hours. Reason for continued inpatient stay Substantial Risk for: inability to function, rapid decompensation and med/psych decompensation Time Spent With Patient Time: Total time managing care of this patient today __20__ minutes.
[2024-05-03 12:00] LABS: Glucose, Whole Blood 184 mg/dL (60-115)
[2024-05-03] MEDS: Insulin Lispro 100 UNIT/ML 3 ML VIAL SUBCUT (12:02)
--- NOTE | 2024-05-03 15:34 | PM.EVENT ---
Event Note Date of Service: 05/03/24 Event Note: Pt is 63-year-old male with a PMH significant for HTN, HLD, insulin-dependent type 2 diabetes, hard, alcohol but denies with hx of alcohol withdrawal, QUAN on CPAP, depression, and anxiety admitted to [facility] psych unit with hospitalist consult for low oxygen levels and evaluation for supplemental O2. Pt seen and evaluated in his room where he is somnolent and sleeping on his back. pt is snoring with episodes of apparent apnea. Pt is somnolent but arousable, the falling back asleep. Pt states he does have QUAN and is on CPAP at night. O2 saturation 94% while awake, though dips to 90 when falling asleep. Pt denies shortness a breath or difficulty breathing. No cough. Review of vitals indicates pt had 1 episode of O2 saturation of 90%, otherwise O2 saturation has been 94-95% on RA. Plan: Continue CPAP at night for QUAN Review of records does not indicate pt significantly hypoxic No clear indication for supplemental oxygen at this time If pt becomes hypoxic, would suggest getting formal O2 evaluation from respiratory Time Spent With Patient Time: Total time managing care of this patient today ____ minutes.
[2024-05-03 17:04] LABS: Glucose, Whole Blood 147 mg/dL (60-115)
--- NOTE | 2024-05-03 19:37 | PC.NURSE ---
Michael had a witnessed fall at 1811, tripped over his own feet, did not hit his head. When Conor Peraza MD spoke to Michael, he stated they pushed me . Picc Nurse made aware.
--- NOTE | 2024-05-03 20:07 | P.EN_ITS ---
Event Note Date of Service: 05/03/24 Event Note: Hospitalist consult for pt who had fall on [facility] unit. Pt is a one-to-one and a high fall risk. Was walking in the hallway with adhesive bonding machine operator who was holding onto his arm. Pt tripped over his sandal in the hallway, lost balance, and was slowly lowered to the floor in a semi-controlled fall, landing on his left side. Pt complained of left hip pain. X-rays were obtained that showed no acute fracture. Pt seen and evaluated where he is sitting in a wheel chair. Range of motion upper of extremities including shoulder, elbow, and wrist intact and symmetric bilaterally. Left shoulder and upper extremity nontender to palpation. Mild tenderness to palpation of left hip. Plan: Imaging negative for hip fracture No further workup indicated for left hip pain Analgesics for pain management as per Psychiatry Consider ambulating on unit with walker or in wheelchair Consider PT/OT evaluation HTN Patient's BP is also noted to be elevated as high as 191/89 Continue metoprolol Will add lisinopril 10 mg daily Thank you for allowing us to participate in the care of this pt. Will sign off for now. Please re-consult if any acute issue or need arises. Time Spent With Patient Time: Total time managing care of this patient today ____ minutes.
[2024-05-03 20:47] LABS: Glucose, Whole Blood 234 mg/dL (60-115)
[2024-05-03] MEDS: Melatonin 3 MG TABLET PO (21:18)
[2024-05-03] MEDS: Acetaminophen 325 MG TABLET 650 MG PO (21:18)
[2024-05-03] MEDS: traZODone HCL 100 MG TABLET 200 MG PO (21:18)
[2024-05-03] MEDS: QUEtiapine Fumarate 200 MG TABLET PO (21:18)
[2024-05-03] MEDS: Insulin Glargine,Hum.rec.anlog 100 UNIT/ML 10 ML VIAL 10 UNIT SUBCUT (21:21)
[2024-05-03] MEDS: lisinopriL 10 MG TABLET PO (21:38)
[2024-05-04 06:21] VITALS: BP 151/86; PULSE 59
[2024-05-04] MEDS: Nicotine 21 MG PATCH.TD24 TRANSDERMA (06:31)
[2024-05-04] MEDS: Isosorbide Mononitrate 30 MG TAB.ER.24H PO (06:32)
[2024-05-04] MEDS: Sertraline HCL 50 MG TABLET PO (06:32)
[2024-05-04] MEDS: Omeprazole 20 MG CAPSULE.DR PO (06:32)
[2024-05-04] MEDS: Fenofibrate 160 MG TABLET PO (06:33)
[2024-05-04] MEDS: hydrOXYzine HCL 50 MG TABLET PO ×2 (06:34→17:04)
[2024-05-04] MEDS: Ibuprofen 600 MG TABLET PO ×2 (06:34→21:26)
[2024-05-04] MEDS: glipiZIDE 5 MG TABLET PO ×2 (06:34→17:05)
[2024-05-04 06:42] VITALS: BP 151/73; PULSE 68
[2024-05-04] MEDS: Metoprolol Succinate ER 50 MG TAB.ER.24H PO (06:42)
[2024-05-04] MEDS: LORazepam 1 MG TABLET PO (06:45)
[2024-05-04] MEDS: Thiamine HCL 100 MG TABLET PO (06:48)
[2024-05-04] MEDS: Gabapentin 300 MG CAPSULE 600 MG PO ×3 (06:50→17:08)
[2024-05-04 07:37] LABS: Glucose, Whole Blood 138 mg/dL (60-115)
[2024-05-04 11:58] VITALS: BP 183/92; PULSE 73
[2024-05-04 12:08] LABS: Glucose, Whole Blood 146 mg/dL (60-115)
[2024-05-04] MEDS: lisinopriL 10 MG TABLET PO (12:11)
--- NOTE | 2024-05-04 13:14 | P.PNPSI_ITS ---
Subjective Subjective Date of Service: 05/04/24 Reason For Visit: Unspec depressive disorder, unspec alcohol use d/o Subjective Notes: Conditional Voluntary Interim History: The nursing staff reported the patient felt yesterday and he hurt his shoulder. He reports depression and anxiety he had been eating well but he still have orthostatic symptoms. He got an x-ray they came back negative. His CIWA had been scored between 8 and 3. He refused his CPAP last night. The staff has noticed that the patient had being incontinent of urine 3 times and does not usual for him. On interview the patient reported that he wanted to go back home but he lives confused and erratic. Also we are ordering a new UA since he had been incontinent in the last hours. Mental Status Exam Mental Status Exam Patient Appearance: Unkempt Patient Orientation: Person Level of Consciousness: Disoriented and Lethargic Patient Behavior: Guarded and Passive Mood Description: Withdrawn Affect Description: Blunted Patient Cognition Impaired: Yes Ability to Follow Directions: Good Speech Pattern: Clear Hallucinations: None Delusions: Paranoid Ideation and Ideas of Reference Thought Process: Distracted and Slowed Thinking Thought Content: positive for [place] and positive for Poverty of Content Judgement: Poor Diagnostics Vital Signs (24Hr): Vital Signs - 24 hr 05/03/24 16:00 05/03/24 18:12 05/03/24 18:40 Temperature 98.1 F 98.1 F Pulse Rate 83 81 81 Respiratory Rate 22 H 22 H Blood Pressure 180/96 H 191/89 H 191/89 H Pulse Oximetry 91 L 91 L Oxygen Delivery Method Room Air 05/03/24 21:34 05/03/24 21:34 05/04/24 06:21 Temperature 98.0 F Pulse Rate 65 59 Respiratory Rate 18 Blood Pressure 181/88 H 151/86 H Pulse Oximetry 97 Oxygen Delivery Method Room Air 05/04/24 06:42 05/04/24 11:58 Temperature Pulse Rate 68 73 Respiratory Rate Blood Pressure 151/73 H 183/92 H Pulse Oximetry Oxygen Delivery Method BMI result Body Mass Index 31.9 Labs 04/30/24 16:41 Labs: Laboratory Results - last 48 hr 05/02/24 05/02/24 05/03/24 16:43 20:21 05:48 POC Glucose 118 H 143 H 170 H 05/03/24 05/03/24 05/03/24 07:39 11:57 16:59 POC Glucose 135 H 184 H 147 H 05/03/24 05/04/24 05/04/24 20:43 07:34 12:04 POC Glucose 234 H 138 H 146 H Imaging Radiology Impressions: ITS Impressions Head CT 05/01/24 08:49 IMPRESSION: 1. No acute intracranial abnormalities. No fracture seen. 2. Mild bilateral frontal lobe atrophy. 3. Paranasal sinus disease maxillary and ethmoid sinuses. No definite air-fluid levels. Electronically signed by: Meek Oliveira MD 05/01/2024 09:14 AM [facility] [place] Medications Medications Current Medications Acetaminophen (Acetaminophen 325 Mg Tablet) 650 mg PO Q6H PRN PRN Reason: Headache/Pain Mild Scale (1-3) Last Admin: 05/03/24 21:18 Dose: 650 mg Al Hydroxide/Mg Hydroxide (Magnesium Hydrox/Alum Hydrox 30 Ml Oral.Susp) 30 ml PO Q6H PRN PRN Reason: Heartburn/Nausea Fenofibrate (Fenofibrate 160 Mg Tablet) 160 mg PO DAILY@0600 [facility] Last Admin: 05/04/24 06:33 Dose: 160 mg Gabapentin (Gabapentin 300 Mg Capsule) 600 mg PO TID@0600,1300,1800 [facility] Last Admin: 05/04/24 12:51 Dose: 600 mg Glipizide (Glipizide 5 Mg Tablet) 5 mg PO BID@0600,1800 [facility] Last Admin: 05/04/24 06:34 Dose: 5 mg Glucose (Glucose Gel 15 Gm Gel..Gram.) 15 gm PO Q15M PRN; Protocol PRN Reason: per Hypoglycemia Standing Ord. Hydroxyzine HCl (Hydroxyzine Hcl 50 Mg Tablet) 50 mg PO BID@0600,1800 [facility] Last Admin: 05/04/24 06:34 Dose: 50 mg Dextrose (D10) 250 mls @ 750 mls/hr IV Q15M PRN; Protocol PRN Reason: per Hypoglycemia Standing Ord. Ibuprofen (Ibuprofen 600 Mg Tablet) 600 mg PO Q8H PRN PRN Reason: Pain, Moderate(Pain Scale 4-6) Last Admin: 05/04/24 06:34 Dose: 600 mg Insulin Glargine (Insulin Glargine,Hum.Rec.Anlog 100 Unit/Ml 10 Ml Vial) 10 unit SUBCUT BEDTIME [facility] Last Admin: 05/03/24 21:21 Dose: 10 unit Insulin Human Lispro (Insulin Lispro 100 Unit/Ml 3 Ml Vial) 0 unit SUBCUT QIDACHS [facility]; Protocol Last Admin: 05/04/24 12:13 Dose: Not Given Isosorbide Mononitrate (Isosorbide Mononitrate 30 Mg Tab.Er.24h) 30 mg PO DAILY@0600 [facility]; Protocol Last Admin: 05/04/24 06:32 Dose: 30 mg Lisinopril (Lisinopril 10 Mg Tablet) 10 mg PO DAILY [facility]; Protocol Last Admin: 05/04/24 12:11 Dose: 10 mg Lorazepam (Lorazepam 1 Mg Tablet) 1 mg PO Q2H PRN PRN Reason: CIWA 8-11 Last Admin: 05/04/24 06:45 Dose: 1 mg Lorazepam (Lorazepam 1 Mg Tablet) 2 mg PO Q2H PRN PRN Reason: CIWA 12-15 Last Admin: 05/02/24 20:40 Dose: 2 mg Lorazepam (Lorazepam 1 Mg Tablet) 3 mg PO Q2H PRN PRN Reason: CIWA > 15, and call MD Last Admin: 04/30/24 15:36 Dose: 3 mg Magnesium Hydroxide (Milk Of Magnesia 30 Ml Oral.Susp) 30 ml PO DAILY PRN PRN Reason: Constipation Melatonin (Melatonin 3 Mg Tablet) 3 mg PO BEDTIME PRN PRN Reason: insomnia Last Admin: 05/03/24 21:18 Dose: 3 mg Metoprolol Succinate (Metoprolol Succinate Er 50 Mg Tab.Er.24h) 50 mg PO DAILY@0600 [facility]; Protocol Last Admin: 05/04/24 06:42 Dose: 50 mg Nicotine (Nicotine 21 Mg Patch.Td24) 21 mg TRANSDERMA DAILY@0600 [facility] Last Admin: 05/04/24 06:31 Dose: 21 mg Nicotine Polacrilex (Nicotine Polacrilex 2 Mg Gum) 4 mg BUCCAL Q2H PRN PRN Reason: Nicotine Cravings Omeprazole (Omeprazole 20 Mg Capsule.Dr) 20 mg PO DAILY@0600 [facility] Last Admin: 05/04/24 06:32 Dose: 20 mg Ondansetron HCl (Ondansetron Odt 8 Mg Tab.Rapdis) 8 mg TRANSLINGU Q12H PRN PRN Reason: Nausea and Vomiting Last Admin: 05/01/24 11:50 Dose: 8 mg Quetiapine Fumarate (Quetiapine Fumarate 200 Mg Tablet) 200 mg PO BEDTIME [facility] Last Admin: 05/03/24 21:18 Dose: 200 mg Sertraline HCl (Sertraline Hcl 50 Mg Tablet) 50 mg PO DAILY@0600 [facility] Last Admin: 05/04/24 06:32 Dose: 50 mg Thiamine HCl (Thiamine Hcl 100 Mg Tablet) 100 mg PO DAILY@0600 [facility] Last Admin: 05/04/24 06:48 Dose: 100 mg Trazodone HCl (Trazodone Hcl 100 Mg Tablet) 200 mg PO BEDTIME PRN PRN Reason: Insomnia Last Admin: 05/03/24 21:18 Dose: 200 mg Allergies Allergies Allergy/AdvReac Type Severity Reaction Status Date / Time morphine Allergy Unknown Verified 04/30/24 15:21 Penicillins Allergy Unknown Verified 04/30/24 15:20 Assessment & Plan Assessment & Plan (1) MDD (major depressive disorder), recurrent episode, severe: Status: Acute Code(s): F33.2 - Major depressive disorder, recurrent severe without psychotic features (2) Alcohol use disorder: Status: Acute Code(s): F10.90 - Alcohol use, unspecified, uncomplicated Plan Patient is a 63-year-old male with history MDD and alcohol use disorder who presented to [facility] ER via ambulance due to suicidal ideation and alcohol use. [facility] and stating he [facility] himself. Plan: CV 1:1 Continue home medications CIWA protocol Obtain collateral Encourage groups Consult to PT to determine need for walker Consult to addiction medicine Discharge planning 05/02: Continues similar to yesterday. continues scoring on CIWA. disheveled. patient in and out falling asleep. Difficult to understand at times due to low volume in speech and mumbling. Pt stated he just wants to sleep ; will continue on CIWA. Decrease hydroxyzine to 50mg PO BID. 05/03 the nursing staff reported that he start scoring lower on the CIWA still at fall risk on one-to-one. We are changing the CIWA to q.4 hours. 05/04 blood work and UA continue same treatment. Reason for continued inpatient stay Substantial Risk for: inability to function, rapid decompensation and med/psych decompensation Time Spent With Patient Time: Total time managing care of this patient today __20__ minutes.
[2024-05-04 16:00] VITALS: BP 172/88; PULSE 62
[2024-05-04 16:54] LABS: Glucose, Whole Blood 185 mg/dL (60-115)
[2024-05-04] MEDS: Insulin Lispro 100 UNIT/ML 3 ML VIAL SUBCUT ×2 (17:05→21:17)
[2024-05-04 20:00] VITALS: BP 167/90; BP 170/90; PULSE 70; RESP 18; TEMP 36.3; O2SAT 100
[2024-05-04 20:20] LABS: Appearance Urine Clear; Color Urine Yellow; Glucose Urine UA Negative (Negative); Leukocyte Esterase Urine Negative (Negative); Nitrite Urine Negative (Negative); PH 6.5 (5.0-9.0); Urine Blood Negative (Negative); Urine Ketones Negative (Negative); Urine Protein Negative (Neg-Trace)
[2024-05-04 20:22] LABS: Bacteria Urine None Seen (None Seen); Hyaline Casts Urine 0-2 /LPF (0-2); RBC Urine 0-2 /HPF (0-2); Squamous Epithelial Cell Urine 0-2 /HPF (0-2); WBC Urine 0-5 /HPF (0-5)
[2024-05-04 20:50] LABS: Glucose, Whole Blood 182 mg/dL (60-115)
[2024-05-04] MEDS: Insulin Glargine,Hum.rec.anlog 100 UNIT/ML 10 ML VIAL 10 UNIT SUBCUT (21:18)
[2024-05-04] MEDS: traZODone HCL 100 MG TABLET 200 MG PO (21:18)
[2024-05-04] MEDS: Melatonin 3 MG TABLET PO (21:18)
[2024-05-04] MEDS: QUEtiapine Fumarate 200 MG TABLET PO (21:19)
[2024-05-04 23:43] VITALS: BP 161/78; PULSE 66
[2024-05-05] VITALS (9 sets, daily range): BP systolic 170–224; BP diastolic 89–101; PULSE 56–70; RESP 14–20; TEMP 36.4–36.8; O2SAT 92–97
--- NOTE | 2024-05-05 | ECG_ITS ---
Test Reason : chest pain Blood Pressure : */* mmHG Vent. Rate : 69 BPM Atrial Rate : 69 BPM P-R Int : 166 ms QRS Dur : 96 ms QT Int : 398 ms P-R-T Axes : 55 28 38 degrees QTcB Int : 426 ms Normal sinus rhythm Normal ECG No previous ECGs available Referred By: Conor Peraza Electronically Signed By: HAILE MONROY MD
[2024-05-05] MEDS: Isosorbide Mononitrate 30 MG TAB.ER.24H PO (06:28)
[2024-05-05] MEDS: Thiamine HCL 100 MG TABLET PO (06:29)
[2024-05-05] MEDS: Sertraline HCL 50 MG TABLET PO (06:29)
[2024-05-05] MEDS: hydrOXYzine HCL 50 MG TABLET PO ×2 (06:29→17:38)
[2024-05-05] MEDS: Metoprolol Succinate ER 50 MG TAB.ER.24H PO (06:29)
[2024-05-05] MEDS: glipiZIDE 5 MG TABLET PO ×2 (06:30→17:38)
[2024-05-05] MEDS: Omeprazole 20 MG CAPSULE.DR PO (06:30)
[2024-05-05] MEDS: Fenofibrate 160 MG TABLET PO (06:31)
[2024-05-05] MEDS: Nicotine 21 MG PATCH.TD24 TRANSDERMA (06:32)
[2024-05-05] MEDS: Gabapentin 300 MG CAPSULE 600 MG PO (06:55)
[2024-05-05 07:21] LABS: Glucose, Whole Blood 151 mg/dL (60-115)
[2024-05-05 08:03] LABS: MANUAL DIFF FLAG NO
[2024-05-05 08:05] LABS: Basophils Absolute Auto 0.1 X10*3/uL (0.0-0.2); Basophils Percent Auto 1.3 % (0-2); Eosinophils Absolute Auto 0.2 X10*3/uL (0.0-0.4); Eosinophils Percent Auto 2.6 % (0-4); Hematocrit 38.1 % (42.0-52.0); Hemoglobin 12.5 g/dl (14.0-18.0); Imm Gran Abs Auto 0.03 X10*3/uL (0.00-0.03); Imm Gran Pct Auto 0.5 % (0.0-0.4); Lymphocytes Absolute Auto 1.7 X10*3/uL (1.2-4.9); Lymphocytes Percent Auto 27.8 % (20-40); Mean Corpuscular HGB Conc 32.8 g/dl (31.0-36.0); Mean Corpuscular Hemoglobin 26.5 pg (27.0-33.0); Mean Corpuscular Volume 80.7 fL (80.0-98.0); Mean Platelet Volume 9.1 fL (9.4-12.4); Monocytes Absolute Auto 0.6 X10*3/uL (0.1-1.2); Monocytes Percent Auto 9.8 % (2-11); Neutrophils Absolute Auto 3.6 x10*3/uL (2.0-8.3); Platelet Count 177 X10*3/uL (160-400); Red Blood Count 4.72 X10*6/uL (4.60-5.80); Red Cell Distribution Width 17.1 % (11.0-16.0); White Blood Count 6.1 X10*3/uL (4.8-10.8)
[2024-05-05] MEDS: Insulin Lispro 100 UNIT/ML 3 ML VIAL SUBCUT ×3 (08:26→20:53)
[2024-05-05] MEDS: lisinopriL 10 MG TABLET PO (08:27)
[2024-05-05 08:28] LABS: Anion Gap 13 (12-20); Blood Urea Nitrogen 19 mg/dL (9-16); Calcium 9.6 mg/dL (8.4-10.2); Carbon Dioxide 24 mmol/L (22-29); Chloride 107 mmol/L (96-108); Creatinine Clr Calc Pharmacy 78.5; Estimated Glomerular Filt Rate > 60; Glucose Random 161 mg/dL (60-115); Potassium 4.2 mmol/L (3.3-5.1); Sodium 140 mmol/L (135-145)
[2024-05-05 08:44] LABS: Thyroid Stimulating Hormone 3.41 uIU/mL (0.32-4.0)
--- NOTE | 2024-05-05 10:18 | HO.PSYCHPN ---
Subjective Subjective Date of Service: 05/05/24 Reason For Visit: Unspec depressive disorder, unspec alcohol use d/o Subjective Notes: Conditional Voluntary Interim History: Active on unit, utilizing walker. awaiting PT consult. tearful, reports feeling depressed and anxious ; pt stated, I'm anxious about my situation and what will happen after here . Pt [facility] . denies SI/HI/VH/AH. DC CIWA; pt no longer in alcohol withdrawal. Decrease gabapentin back to home dose of 300mg PO TID. Increase Sertraline to 75mg PO daily Medication Compliance: Yes Side effects from medications: No Attending Groups: Intermittent Mental Status Exam Mental Status Exam Narrative: Pt is alert and oriented; behavior is cooperative, tearful; dressed in casual attire; mood is described as depressed and anxious ; eye contact appropriate; Speech is normal rate, volume and not pressured; thought process is organized and goal directed; Thought content is on tx; denies SI/HI/VH/AH Diagnostics Vital Signs (24Hr): Vital Signs - 24 hr 05/04/24 11:58 05/04/24 16:00 05/04/24 20:00 Temperature 97.3 F Pulse Rate 73 62 Respiratory Rate 18 Blood Pressure 183/92 H 172/88 H 167/90 H Pulse Oximetry 100 Oxygen Delivery Method Room Air 05/04/24 20:00 05/04/24 23:43 05/05/24 06:28 Temperature Pulse Rate 70 66 Respiratory Rate Blood Pressure 170/90 H 161/78 H 170/89 H Pulse Oximetry Oxygen Delivery Method 05/05/24 06:29 05/05/24 08:00 05/05/24 08:51 Temperature 97.6 F Pulse Rate 67 63 66 Respiratory Rate 14 Blood Pressure 178/89 H 190/96 H 198/101 H Pulse Oximetry 92 Oxygen Delivery Method Room Air BMI result Body Mass Index 31.9 Labs 05/05/24 07:39 05/05/24 07:39 Labs: Laboratory Results - last 48 hr 05/03/24 05/03/24 05/03/24 11:57 16:59 20:43 WBC RBC Hgb Hct MCV MCH MCHC RDW Plt Count MPV Immature Gran % (Auto) Neut % (Auto) Lymph % (Auto) [place] % (Auto) Eos % (Auto) Baso % (Auto) Lymph # (Auto) [place] # (Auto) Eos # (Auto) Baso # (Auto) Abs Immat Gran (auto) Absolute Neuts (auto) Absolute Nucleated RBC Nucleated RBC % (auto) Sodium Potassium Chloride Carbon Dioxide Anion Gap BUN Creatinine Estim Creat Clear Calc Estimated GFR POC Glucose 184 H 147 H 234 H Random Glucose Calcium TSH Urine Color Urine Appearance Urine pH Ur Specific [place] Urine Protein Urine Glucose (UA) Urine Ketones Urine Blood Urine Nitrite Ur Leukocyte Esterase Urine RBC Urine WBC Ur Squamous Epith Cells Urine Bacteria Hyaline Casts 05/04/24 05/04/24 05/04/24 07:34 12:04 16:50 WBC RBC Hgb Hct MCV MCH MCHC RDW Plt Count MPV Immature Gran % (Auto) Neut % (Auto) Lymph % (Auto) [place] % (Auto) Eos % (Auto) Baso % (Auto) Lymph # (Auto) [place] # (Auto) Eos # (Auto) Baso # (Auto) Abs Immat Gran (auto) Absolute Neuts (auto) Absolute Nucleated RBC Nucleated RBC % (auto) Sodium Potassium Chloride Carbon Dioxide Anion Gap BUN Creatinine Estim Creat Clear Calc Estimated GFR POC Glucose 138 H 146 H 185 H Random Glucose Calcium TSH Urine Color Urine Appearance Urine pH Ur Specific [place] Urine Protein Urine Glucose (UA) Urine Ketones Urine Blood Urine Nitrite Ur Leukocyte Esterase Urine RBC Urine WBC Ur Squamous Epith Cells Urine Bacteria Hyaline Casts 05/04/24 05/04/24 05/05/24 20:10 20:16 07:17 WBC RBC Hgb Hct MCV MCH MCHC RDW Plt Count MPV Immature Gran % (Auto) Neut % (Auto) Lymph % (Auto) [place] % (Auto) Eos % (Auto) Baso % (Auto) Lymph # (Auto) [place] # (Auto) Eos # (Auto) Baso # (Auto) Abs Immat Gran (auto) Absolute Neuts (auto) Absolute Nucleated RBC Nucleated RBC % (auto) Sodium Potassium Chloride Carbon Dioxide Anion Gap BUN Creatinine Estim Creat Clear Calc Estimated GFR POC Glucose 182 H 151 H Random Glucose Calcium TSH Urine Color Yellow Urine Appearance Clear Urine pH 6.5 Ur Specific [place] 1.010 Urine Protein Negative Urine Glucose (UA) Negative Urine Ketones Negative Urine Blood Negative Urine Nitrite Negative Ur Leukocyte Esterase Negative Urine RBC 0-2 Urine WBC 0-5 Ur Squamous Epith Cells 0-2 Urine Bacteria None Seen Hyaline Casts 0-2 05/05/24 07:39 WBC 6.1 RBC 4.72 Hgb 12.5 L Hct 38.1 L MCV 80.7 MCH 26.5 L MCHC 32.8 RDW 17.1 H Plt Count 177 MPV 9.1 L Immature Gran % (Auto) 0.5 H Neut % (Auto) 58.0 Lymph % (Auto) 27.8 [place] % (Auto) 9.8 Eos % (Auto) 2.6 Baso % (Auto) 1.3 Lymph # (Auto) 1.7 [place] # (Auto) 0.6 Eos # (Auto) 0.2 Baso # (Auto) 0.1 Abs Immat Gran (auto) 0.03 Absolute Neuts (auto) 3.6 Absolute Nucleated RBC 0.000 Nucleated RBC % (auto) 0.0 Sodium 140 Potassium 4.2 Chloride 107 Carbon Dioxide 24 Anion Gap 13 BUN 19 H Creatinine 1.16 Estim Creat Clear Calc 78.5 Estimated GFR > 60 POC Glucose Random Glucose 161 H Calcium 9.6 D TSH 3.41 Urine Color Urine Appearance Urine pH Ur Specific [place] Urine Protein Urine Glucose (UA) Urine Ketones Urine Blood Urine Nitrite Ur Leukocyte Esterase Urine RBC Urine WBC Ur Squamous Epith Cells Urine Bacteria Hyaline Casts Imaging Radiology Impressions: ITS Impressions Head CT 05/01/24 08:49 IMPRESSION: 1. No acute intracranial abnormalities. No fracture seen. 2. Mild bilateral frontal lobe atrophy. 3. Paranasal sinus disease maxillary and ethmoid sinuses. No definite air-fluid levels. Electronically signed by: Meek Oliveira MD 05/01/2024 09:14 AM [facility] [place] Medications Medications Current Medications Acetaminophen (Acetaminophen 325 Mg Tablet) 650 mg PO Q6H PRN PRN Reason: Headache/Pain Mild Scale (1-3) Last Admin: 05/03/24 21:18 Dose: 650 mg Al Hydroxide/Mg Hydroxide (Magnesium Hydrox/Alum Hydrox 30 Ml Oral.Susp) 30 ml PO Q6H PRN PRN Reason: Heartburn/Nausea Fenofibrate (Fenofibrate 160 Mg Tablet) 160 mg PO DAILY@0600 [facility] Last Admin: 05/05/24 06:31 Dose: 160 mg Gabapentin (Gabapentin 300 Mg Capsule) 600 mg PO TID@0600,1300,1800 [facility] Last Admin: 05/05/24 06:55 Dose: 600 mg Glipizide (Glipizide 5 Mg Tablet) 5 mg PO BID@0600,1800 [facility] Last Admin: 05/05/24 06:30 Dose: 5 mg Glucose (Glucose Gel 15 Gm Gel..Gram.) 15 gm PO Q15M PRN; Protocol PRN Reason: per Hypoglycemia Standing Ord. Hydroxyzine HCl (Hydroxyzine Hcl 50 Mg Tablet) 50 mg PO BID@0600,1800 [facility] Last Admin: 05/05/24 06:29 Dose: 50 mg Dextrose (D10) 250 mls @ 750 mls/hr IV Q15M PRN; Protocol PRN Reason: per Hypoglycemia Standing Ord. Ibuprofen (Ibuprofen 600 Mg Tablet) 600 mg PO Q8H PRN PRN Reason: Pain, Moderate(Pain Scale 4-6) Last Admin: 05/04/24 21:26 Dose: 600 mg Insulin Glargine (Insulin Glargine,Hum.Rec.Anlog 100 Unit/Ml 10 Ml Vial) 10 unit SUBCUT BEDTIME [facility] Last Admin: 05/04/24 21:18 Dose: 10 unit Insulin Human Lispro (Insulin Lispro 100 Unit/Ml 3 Ml Vial) 0 unit SUBCUT QIDACHS [facility]; Protocol Last Admin: 05/05/24 08:26 Dose: 2 unit Isosorbide Mononitrate (Isosorbide Mononitrate 30 Mg Tab.Er.24h) 30 mg PO DAILY@0600 [facility]; Protocol Last Admin: 05/05/24 06:28 Dose: 30 mg Lisinopril (Lisinopril 10 Mg Tablet) 10 mg PO DAILY [facility]; Protocol Last Admin: 05/05/24 08:27 Dose: 10 mg Magnesium Hydroxide (Milk Of Magnesia 30 Ml Oral.Susp) 30 ml PO DAILY PRN PRN Reason: Constipation Melatonin (Melatonin 3 Mg Tablet) 3 mg PO BEDTIME PRN PRN Reason: insomnia Last Admin: 05/04/24 21:18 Dose: 3 mg Metoprolol Succinate (Metoprolol Succinate Er 50 Mg Tab.Er.24h) 50 mg PO DAILY@0600 [facility]; Protocol Last Admin: 05/05/24 06:29 Dose: 50 mg Nicotine (Nicotine 21 Mg Patch.Td24) 21 mg TRANSDERMA DAILY@0600 [facility] Last Admin: 05/05/24 06:32 Dose: 21 mg Nicotine Polacrilex (Nicotine Polacrilex 2 Mg Gum) 4 mg BUCCAL Q2H PRN PRN Reason: Nicotine Cravings Omeprazole (Omeprazole 20 Mg Capsule.Dr) 20 mg PO DAILY@0600 [facility] Last Admin: 05/05/24 06:30 Dose: 20 mg Ondansetron HCl (Ondansetron Odt 8 Mg Tab.Rapdis) 8 mg TRANSLINGU Q12H PRN PRN Reason: Nausea and Vomiting Last Admin: 05/01/24 11:50 Dose: 8 mg Quetiapine Fumarate (Quetiapine Fumarate 200 Mg Tablet) 200 mg PO BEDTIME [facility] Last Admin: 05/04/24 21:19 Dose: 200 mg Sertraline HCl (Sertraline Hcl 50 Mg Tablet) 50 mg PO DAILY@0600 [facility] Last Admin: 05/05/24 06:29 Dose: 50 mg Thiamine HCl (Thiamine Hcl 100 Mg Tablet) 100 mg PO DAILY@0600 [facility] Last Admin: 05/05/24 06:29 Dose: 100 mg Trazodone HCl (Trazodone Hcl 100 Mg Tablet) 200 mg PO BEDTIME PRN PRN Reason: Insomnia Last Admin: 05/04/24 21:18 Dose: 200 mg Allergies Allergies Allergy/AdvReac Type Severity Reaction Status Date / Time morphine Allergy Unknown Verified 04/30/24 15:21 Penicillins Allergy Unknown Verified 04/30/24 15:20 Assessment & Plan Assessment & Plan (1) MDD (major depressive disorder), recurrent episode, severe: Status: Acute Code(s): F33.2 - Major depressive disorder, recurrent severe without psychotic features (2) Alcohol use disorder: Status: Acute Code(s): F10.90 - Alcohol use, unspecified, uncomplicated Plan Patient is a 63-year-old male with history MDD and alcohol use disorder who presented to [facility] ER via ambulance due to suicidal ideation and alcohol use. [facility] and stating he wanted to [facility] himself. Plan: CV 1:1 Continue home medications CIWA protocol Obtain collateral Encourage groups Consult to PT to determine need for walker Consult to addiction medicine Discharge planning 05/02: Continues similar to yesterday. continues scoring on CIWA. disheveled. patient in and out falling asleep. Difficult to understand at times due to low volume in speech and mumbling. Pt stated he just wants to sleep ; will continue on CIWA. Decrease hydroxyzine to 50mg PO BID. 05/03 the nursing staff reported that he start scoring lower on the CIWA still at fall risk on one-to-one. We are changing the CIWA to q.4 hours. 05/04 blood work and UA continue same treatment. 05/05:Active on unit, utilizing walker. awaiting PT consult. tearful, reports feeling depressed and anxious ; pt stated, I'm anxious about my situation and what will happen after here . Pt reports he is hoping to go to a program at [facility] . denies SI/HI/VH/AH. DC CIWA; pt no longer in alcohol withdrawal. Decrease gabapentin back to home dose of 300mg PO TID. Increase Sertraline to 75mg PO daily Patient educated on: diagnosis, medication risk/benefits and therapeutic strategies Reason for continued inpatient stay Substantial Risk for: med/psych decompensation Time Spent With Patient Time: Total time managing care of this patient today _20___ minutes.
--- NOTE | 2024-05-05 11:13 | PC.NURSE ---
Call placed to PT inquiring about consult ordered 05/01/24. They will return call today.
[2024-05-05] MEDS: amLODIPine Besylate 10 MG TABLET PO (14:41)
[2024-05-05] MEDS: Gabapentin 300 MG CAPSULE PO ×2 (14:43→18:03)
--- NOTE | 2024-05-05 15:23 | MHC.RECOVRN ---
AUDIT-C Brief Intervention Pt had positive screen for unhealthy alcohol use on admission, subsequently met with t/w to discuss alcohol use and recovery supports/options. This poem writer met with patient to discuss current alcohol use and concerns related to increased risk of alcohol related problems.? Pt reports 1.5 pints rum daily during the week and two 1.75 liter bottles on the weekends x 3-4 months. Discussed how alcohol use has impacted health, including negative impact on mental health, pt tearfully states I need to stop before this kills me. Pt reports longest time without alcohol has been 1-2 weeks. However, pt did report extended stay at [facility] in December 2023. Withdrawal History: denies hx withdrawal seizures Treatment History: ATS x 10, AA (did not like), IOP x 2 (did not like), TOÑO (antabuse and naltrexone, did not like) Supports:?sister, parents Discussed risk reduction strategies including drinking below the recommended limit. Provided pt with written resources including information on inpatient and outpatient treatment, TOÑO, harm reduction, and recovery coaching. Pt plans to review resources, continue working with social services aide and possibly [facility]. Pt provided with t/w contact information if questions or concerns arise. Denies other questions or concerns at this time.?
[2024-05-05 15:44] LABS: Glucose, Whole Blood 229 mg/dL (60-115)
[2024-05-05 17:03] LABS: Glucose, Whole Blood 215 mg/dL (60-115)
[2024-05-05] MEDS: Aspirin 81 MG TAB.CHEW PO (17:38)
--- NOTE | 2024-05-05 18:20 | PM.EVENT ---
Event Note Date of Service: 05/05/24 Event Note: bp uncontrolled, added amlodipine 10 and hydralazine 10 tid Time Spent With Patient Time: Total time managing care of this patient today ____ minutes.
[2024-05-05] MEDS: QUEtiapine Fumarate 200 MG TABLET PO (20:12)
[2024-05-05] MEDS: hydrALAZINE HCl 10 MG TABLET PO (20:12)
[2024-05-05] MEDS: Insulin Glargine,Hum.rec.anlog 100 UNIT/ML 10 ML VIAL 10 UNIT SUBCUT (20:13)
[2024-05-05 20:19] LABS: Glucose, Whole Blood 279 mg/dL (60-115)
[2024-05-05] MEDS: traZODone HCL 100 MG TABLET 200 MG PO (20:53)
[2024-05-05] MEDS: Melatonin 3 MG TABLET PO (20:53)
[2024-05-06 05:28] VITALS: BP 171/78; PULSE 61; RESP 16; TEMP 36.6; O2SAT 94
[2024-05-06] MEDS: Nicotine 21 MG PATCH.TD24 TRANSDERMA (05:50)
[2024-05-06] MEDS: Fenofibrate 160 MG TABLET PO (05:52)
[2024-05-06] MEDS: hydrOXYzine HCL 50 MG TABLET PO ×2 (05:52→18:21)
[2024-05-06] MEDS: glipiZIDE 5 MG TABLET PO ×2 (05:52→18:16)
[2024-05-06] MEDS: Sertraline HCL 25 MG TABLET 75 MG PO (05:53)
[2024-05-06] MEDS: Isosorbide Mononitrate 30 MG TAB.ER.24H PO (05:53)
[2024-05-06] MEDS: Omeprazole 20 MG CAPSULE.DR PO (05:53)
[2024-05-06] MEDS: Metoprolol Succinate ER 50 MG TAB.ER.24H PO (05:54)
[2024-05-06] MEDS: Thiamine HCL 100 MG TABLET PO (05:55)
[2024-05-06] MEDS: Gabapentin 300 MG CAPSULE PO ×3 (06:09→18:58)
[2024-05-06 07:39] LABS: Glucose, Whole Blood 199 mg/dL (60-115)
[2024-05-06 07:42] VITALS: BP 167/79; PULSE 55; RESP 16; TEMP 36.4; O2SAT 95
[2024-05-06] MEDS: Insulin Lispro 100 UNIT/ML 3 ML VIAL SUBCUT ×2 (08:21→16:35)
[2024-05-06] MEDS: Aspirin 81 MG TAB.CHEW PO (08:23)
[2024-05-06] MEDS: hydrALAZINE HCl 10 MG TABLET PO ×3 (08:24→21:08)
[2024-05-06] MEDS: amLODIPine Besylate 10 MG TABLET PO (08:24)
[2024-05-06] MEDS: lisinopriL 10 MG TABLET PO (08:24)
--- NOTE | 2024-05-06 11:28 | HO.PSYCHPN ---
Subjective Subjective Date of Service: 05/06/24 Reason For Visit: Unspec depressive disorder, unspec alcohol use d/o Subjective Notes: Conditional Voluntary Interim History: Pt continues to report feeling depressed ; pt stated, I'm worried about going home and drinking again because I'll be alone . Discussed possibly staying with family until he can [facility] with [facility]. denies SI/HI/VH/AH. encouraged to attend groups. Continue current tx plan. Medication Compliance: Yes Side effects from medications: No Attending Groups: No Review of Systems Constitutional: Reports as per HPI Eyes: Reports as per HPI Reports as per HPI Cardiovascular: Reports as per HPI Respiratory: Reports as per HPI Gastrointestinal: Reports as per HPI Genitourinary: Reports as per HPI Musculoskeletal: Reports as per HPI Skin/Breast: Reports as per HPI Reports as per HPI Psychiatric: Reports as per HPI Endocrine: Reports as per HPI Hematologic/Lymphatic: Reports as per HPI Allergic/Immunologic: Reports as per HPI Mental Status Exam Mental Status Exam Narrative: Pt is alert and oriented; behavior is cooperative, calm; dressed in casual attire; mood is described as depressed and anxious ; eye contact appropriate; Speech is normal rate, volume and not pressured; thought process is organized and goal directed; Thought content is on tx; denies SI/HI/VH/AH Diagnostics Vital Signs (24Hr): Vital Signs - 24 hr 05/05/24 18:01 05/05/24 19:50 05/05/24 19:55 Temperature 97.8 F 98.2 F Pulse Rate 64 58 68 Respiratory Rate 20 16 Blood Pressure 184/100 H 224/100 H 206/93 H Pulse Oximetry 96 97 95 Oxygen Delivery Method Room Air Room Air Room Air 05/05/24 20:00 05/05/24 21:15 05/06/24 05:28 Temperature 97.8 F Pulse Rate 56 70 61 Respiratory Rate 16 Blood Pressure 202/92 H 179/98 H 171/78 H Pulse Oximetry 94 Oxygen Delivery Method Room Air 05/06/24 07:42 Temperature 97.6 F Pulse Rate 55 Respiratory Rate 16 Blood Pressure 167/79 H Pulse Oximetry 95 Oxygen Delivery Method Room Air BMI result Body Mass Index 31.9 Labs 05/05/24 07:39 05/05/24 07:39 Labs: Laboratory Results - last 48 hr 05/04/24 05/04/24 05/04/24 12:04 16:50 20:10 WBC RBC Hgb Hct MCV MCH MCHC RDW Plt Count MPV Immature Gran % (Auto) Neut % (Auto) Lymph % (Auto) [place] % (Auto) Eos % (Auto) Baso % (Auto) Lymph # (Auto) [place] # (Auto) Eos # (Auto) Baso # (Auto) Abs Immat Gran (auto) Absolute Neuts (auto) Absolute Nucleated RBC Nucleated RBC % (auto) Sodium Potassium Chloride Carbon Dioxide Anion Gap BUN Creatinine Estim Creat Clear Calc Estimated GFR POC Glucose 146 H 185 H Random Glucose Calcium TSH Urine Color Yellow Urine Appearance Clear Urine pH 6.5 Ur Specific [place] 1.010 Urine Protein Negative Urine Glucose (UA) Negative Urine Ketones Negative Urine Blood Negative Urine Nitrite Negative Ur Leukocyte Esterase Negative Urine RBC 0-2 Urine WBC 0-5 Ur Squamous Epith Cells 0-2 Urine Bacteria None Seen Hyaline Casts 0-2 05/04/24 05/05/24 05/05/24 20:16 07:17 07:39 WBC 6.1 RBC 4.72 Hgb 12.5 L Hct 38.1 L MCV 80.7 MCH 26.5 L MCHC 32.8 RDW 17.1 H Plt Count 177 MPV 9.1 L Immature Gran % (Auto) 0.5 H Neut % (Auto) 58.0 Lymph % (Auto) 27.8 [place] % (Auto) 9.8 Eos % (Auto) 2.6 Baso % (Auto) 1.3 Lymph # (Auto) 1.7 [place] # (Auto) 0.6 Eos # (Auto) 0.2 Baso # (Auto) 0.1 Abs Immat Gran (auto) 0.03 Absolute Neuts (auto) 3.6 Absolute Nucleated RBC 0.000 Nucleated RBC % (auto) 0.0 Sodium 140 Potassium 4.2 Chloride 107 Carbon Dioxide 24 Anion Gap 13 BUN 19 H Creatinine 1.16 Estim Creat Clear Calc 78.5 Estimated GFR > 60 POC Glucose 182 H 151 H Random Glucose 161 H Calcium 9.6 D TSH 3.41 Urine Color Urine Appearance Urine pH Ur Specific [place] Urine Protein Urine Glucose (UA) Urine Ketones Urine Blood Urine Nitrite Ur Leukocyte Esterase Urine RBC Urine WBC Ur Squamous Epith Cells Urine Bacteria Hyaline Casts 05/05/24 05/05/24 05/05/24 15:39 17:00 20:15 WBC RBC Hgb Hct MCV MCH MCHC RDW Plt Count MPV Immature Gran % (Auto) Neut % (Auto) Lymph % (Auto) [place] % (Auto) Eos % (Auto) Baso % (Auto) Lymph # (Auto) [place] # (Auto) Eos # (Auto) Baso # (Auto) Abs Immat Gran (auto) Absolute Neuts (auto) Absolute Nucleated RBC Nucleated RBC % (auto) Sodium Potassium Chloride Carbon Dioxide Anion Gap BUN Creatinine Estim Creat Clear Calc Estimated GFR POC Glucose 229 H 215 H 279 H Random Glucose Calcium TSH Urine Color Urine Appearance Urine pH Ur Specific [place] Urine Protein Urine Glucose (UA) Urine Ketones Urine Blood Urine Nitrite Ur Leukocyte Esterase Urine RBC Urine WBC Ur Squamous Epith Cells Urine Bacteria Hyaline Casts 05/06/24 07:30 WBC RBC Hgb Hct MCV MCH MCHC RDW Plt Count MPV Immature Gran % (Auto) Neut % (Auto) Lymph % (Auto) [place] % (Auto) Eos % (Auto) Baso % (Auto) Lymph # (Auto) [place] # (Auto) Eos # (Auto) Baso # (Auto) Abs Immat Gran (auto) Absolute Neuts (auto) Absolute Nucleated RBC Nucleated RBC % (auto) Sodium Potassium Chloride Carbon Dioxide Anion Gap BUN Creatinine Estim Creat Clear Calc Estimated GFR POC Glucose 199 H Random Glucose Calcium TSH Urine Color Urine Appearance Urine pH Ur Specific [place] Urine Protein Urine Glucose (UA) Urine Ketones Urine Blood Urine Nitrite Ur Leukocyte Esterase Urine RBC Urine WBC Ur Squamous Epith Cells Urine Bacteria Hyaline Casts Imaging Radiology Impressions: ITS Impressions Head CT 05/01/24 08:49 IMPRESSION: 1. No acute intracranial abnormalities. No fracture seen. 2. Mild bilateral frontal lobe atrophy. 3. Paranasal sinus disease maxillary and ethmoid sinuses. No definite air-fluid levels. Electronically signed by: Meek Oliveira MD 05/01/2024 09:14 AM [facility] Medications Medications Current Medications Acetaminophen (Acetaminophen 325 Mg Tablet) 650 mg PO Q6H PRN PRN Reason: Headache/Pain Mild Scale (1-3) Last Admin: 05/03/24 21:18 Dose: 650 mg Al Hydroxide/Mg Hydroxide (Magnesium Hydrox/Alum Hydrox 30 Ml Oral.Susp) 30 ml PO Q6H PRN PRN Reason: Heartburn/Nausea Amlodipine Besylate (Amlodipine Besylate 10 Mg Tablet) 10 mg PO DAILY [facility]; Protocol Last Admin: 05/06/24 08:24 Dose: 10 mg Aspirin (Aspirin 81 Mg Tab.Chew) 81 mg PO DAILY [facility] Last Admin: 05/06/24 08:23 Dose: 81 mg Fenofibrate (Fenofibrate 160 Mg Tablet) 160 mg PO DAILY@0600 [facility] Last Admin: 05/06/24 05:52 Dose: 160 mg Gabapentin (Gabapentin 300 Mg Capsule) 300 mg PO TID@0600,1300,1800 [facility] Last Admin: 05/06/24 06:09 Dose: 300 mg Glipizide (Glipizide 5 Mg Tablet) 5 mg PO BID@0600,1800 [facility] Last Admin: 05/06/24 05:52 Dose: 5 mg Glucose (Glucose Gel 15 Gm Gel..Gram.) 15 gm PO Q15M PRN; Protocol PRN Reason: per Hypoglycemia Standing Ord. Hydralazine HCl (Hydralazine Hcl 10 Mg Tablet) 10 mg PO TID [facility]; Protocol Last Admin: 05/06/24 08:24 Dose: 10 mg Hydroxyzine HCl (Hydroxyzine Hcl 50 Mg Tablet) 50 mg PO BID@0600,1800 [facility] Last Admin: 05/06/24 05:52 Dose: 50 mg Dextrose (D10) 250 mls @ 750 mls/hr IV Q15M PRN; Protocol PRN Reason: per Hypoglycemia Standing Ord. Ibuprofen (Ibuprofen 600 Mg Tablet) 600 mg PO Q8H PRN PRN Reason: Pain, Moderate(Pain Scale 4-6) Last Admin: 05/04/24 21:26 Dose: 600 mg Insulin Glargine (Insulin Glargine,Hum.Rec.Anlog 100 Unit/Ml 10 Ml Vial) 10 unit SUBCUT BEDTIME [facility] Last Admin: 05/05/24 20:13 Dose: 10 unit Insulin Human Lispro (Insulin Lispro 100 Unit/Ml 3 Ml Vial) 0 unit SUBCUT QIDACHS [facility]; Protocol Last Admin: 05/06/24 08:21 Dose: 2 unit Isosorbide Mononitrate (Isosorbide Mononitrate 30 Mg Tab.Er.24h) 30 mg PO DAILY@0600 [facility]; Protocol Last Admin: 05/06/24 05:53 Dose: 30 mg Lisinopril (Lisinopril 10 Mg Tablet) 10 mg PO DAILY [facility]; Protocol Last Admin: 05/06/24 08:24 Dose: 10 mg Magnesium Hydroxide (Milk Of Magnesia 30 Ml Oral.Susp) 30 ml PO DAILY PRN PRN Reason: Constipation Melatonin (Melatonin 3 Mg Tablet) 3 mg PO BEDTIME PRN PRN Reason: insomnia Last Admin: 05/05/24 20:53 Dose: 3 mg Metoprolol Succinate (Metoprolol Succinate Er 50 Mg Tab.Er.24h) 50 mg PO DAILY@0600 [facility]; Protocol Last Admin: 05/06/24 05:54 Dose: 50 mg Nicotine (Nicotine 21 Mg Patch.Td24) 21 mg TRANSDERMA DAILY@0600 [facility] Last Admin: 05/06/24 05:50 Dose: 21 mg Nicotine Polacrilex (Nicotine Polacrilex 2 Mg Gum) 4 mg BUCCAL Q2H PRN PRN Reason: Nicotine Cravings Omeprazole (Omeprazole 20 Mg Capsule.Dr) 20 mg PO DAILY@0600 [facility] Last Admin: 05/06/24 05:53 Dose: 20 mg Ondansetron HCl (Ondansetron Odt 8 Mg Tab.Rapdis) 8 mg TRANSLINGU Q12H PRN PRN Reason: Nausea and Vomiting Last Admin: 05/01/24 11:50 Dose: 8 mg Quetiapine Fumarate (Quetiapine Fumarate 200 Mg Tablet) 200 mg PO BEDTIME [facility] Last Admin: 05/05/24 20:12 Dose: 200 mg Sertraline HCl (Sertraline Hcl 25 Mg Tablet) 75 mg PO DAILY@0600 [facility] Last Admin: 05/06/24 05:53 Dose: 75 mg Thiamine HCl (Thiamine Hcl 100 Mg Tablet) 100 mg PO DAILY@0600 [facility] Last Admin: 05/06/24 05:55 Dose: 100 mg Trazodone HCl (Trazodone Hcl 100 Mg Tablet) 200 mg PO BEDTIME PRN PRN Reason: Insomnia Last Admin: 05/05/24 20:53 Dose: 200 mg Allergies Allergies Allergy/AdvReac Type Severity Reaction Status Date / Time morphine Allergy Unknown Verified 04/30/24 15:21 Penicillins Allergy Unknown Verified 04/30/24 15:20 Assessment & Plan Assessment & Plan (1) MDD (major depressive disorder), recurrent episode, severe: Status: Acute Code(s): F33.2 - Major depressive disorder, recurrent severe without psychotic features (2) Alcohol use disorder: Status: Acute Code(s): F10.90 - Alcohol use, unspecified, uncomplicated Plan Patient is a 63-year-old male with history MDD and alcohol use disorder who presented to [facility] ER via ambulance due to suicidal ideation and alcohol use. [facility] and stating he wanted to kill himself. Plan: CV 1:1 Continue home medications CIWA protocol Obtain collateral Encourage groups Consult to PT to determine need for walker Consult to addiction medicine Discharge planning 05/02: Continues similar to yesterday. continues scoring on CIWA. disheveled. patient in and out falling asleep. Difficult to understand at times due to low volume in speech and mumbling. Pt stated he just wants to sleep ; will continue on CIWA. Decrease hydroxyzine to 50mg PO BID. 05/03 the nursing staff reported that he start scoring lower on the CIWA still at fall risk on one-to-one. We are changing the CIWA to q.4 hours. 05/04 blood work and UA continue same treatment. 05/05:Active on unit, utilizing walker. awaiting PT consult. tearful, reports feeling depressed and anxious ; pt stated, I'm anxious about my situation and what will happen after here . Pt reports [facility] . denies SI/HI/VH/AH. DC CIWA; pt no longer in alcohol withdrawal. Decrease gabapentin back to home dose of 300mg PO TID. Increase Sertraline to 75mg PO daily 05/06: Pt continues to report feeling depressed ; pt stated, I'm worried about going home and drinking again because I'll be alone . Discussed possibly staying with family until he can follow up with [facility]. denies SI/HI/VH/AH. encouraged to attend groups. Continue current tx plan. Patient educated on: diagnosis, medication risk/benefits and therapeutic strategies Reason for continued inpatient stay Substantial Risk for: med/psych decompensation Time Spent With Patient Time: Total time managing care of this patient today _20___ minutes.
[2024-05-06 15:14] VITALS: BP 139/78
[2024-05-06 16:30] LABS: Glucose, Whole Blood 279 mg/dL (60-115)
[2024-05-06 20:50] VITALS: BP 150/78; PULSE 61; RESP 18; TEMP 37.1; O2SAT 95
[2024-05-06 21:00] LABS: Glucose, Whole Blood 265 mg/dL (60-115)
[2024-05-06] MEDS: Insulin Glargine,Hum.rec.anlog 100 UNIT/ML 10 ML VIAL 10 UNIT SUBCUT (21:02)
[2024-05-06] MEDS: QUEtiapine Fumarate 200 MG TABLET PO (21:08)
[2024-05-06] MEDS: traZODone HCL 100 MG TABLET 200 MG PO (21:08)
[2024-05-07] VITALS (7 sets, daily range): BP systolic 136–157; BP diastolic 36–95; PULSE 60–72; RESP 14–18; TEMP 36.8–37.1; O2SAT 95–96
[2024-05-07] MEDS: Sertraline HCL 25 MG TABLET 75 MG PO (06:31)
[2024-05-07] MEDS: Metoprolol Succinate ER 50 MG TAB.ER.24H PO (06:32)
[2024-05-07] MEDS: Gabapentin 300 MG CAPSULE PO ×3 (06:32→18:26)
[2024-05-07] MEDS: Isosorbide Mononitrate 30 MG TAB.ER.24H PO (06:33)
[2024-05-07] MEDS: glipiZIDE 5 MG TABLET PO ×2 (06:33→18:25)
[2024-05-07] MEDS: Fenofibrate 160 MG TABLET PO (06:33)
[2024-05-07] MEDS: hydrOXYzine HCL 50 MG TABLET PO ×2 (06:33→18:30)
[2024-05-07] MEDS: Thiamine HCL 100 MG TABLET PO (06:34)
[2024-05-07] MEDS: Nicotine 21 MG PATCH.TD24 TRANSDERMA (06:34)
[2024-05-07] MEDS: Omeprazole 20 MG CAPSULE.DR PO (06:34)
[2024-05-07 08:02] LABS: Glucose, Whole Blood 224 mg/dL (60-115)
[2024-05-07] MEDS: Insulin Lispro 100 UNIT/ML 3 ML VIAL SUBCUT ×2 (08:09→16:42)
[2024-05-07] MEDS: amLODIPine Besylate 10 MG TABLET PO (08:11)
[2024-05-07] MEDS: Aspirin 81 MG TAB.CHEW PO (08:11)
[2024-05-07] MEDS: lisinopriL 10 MG TABLET PO (08:11)
[2024-05-07] MEDS: hydrALAZINE HCl 10 MG TABLET PO ×3 (08:15→20:21)
--- NOTE | 2024-05-07 12:39 | HO.PSYCHPN ---
Subjective Subjective Date of Service: 05/07/24 Reason For Visit: Unspec depressive disorder, unspec alcohol use d/o Subjective Notes: Conditional Voluntary Interim History: Active on unit. Patient reports feeling better today; pt reports he plans on going back to his home on discharge and waiting for [facility] services . Patient reports he plans on maintaining his sobriety with the help if his family; pt stated, I'm sure they will keep popping into my house . denies SI/HI/VH/AH. Plan to discharge home Sunday if continues to improve. Medication Compliance: Yes Side effects from medications: No Review of Systems Constitutional: Reports as per HPI Eyes: Reports as per HPI Reports as per HPI Cardiovascular: Reports as per HPI Respiratory: Reports as per HPI Gastrointestinal: Reports as per HPI Genitourinary: Reports as per HPI Musculoskeletal: Reports as per HPI Skin/Breast: Reports as per HPI Reports as per HPI Psychiatric: Reports as per HPI Endocrine: Reports as per HPI Hematologic/Lymphatic: Reports as per HPI Allergic/Immunologic: Reports as per HPI Mental Status Exam Mental Status Exam Narrative: Pt is alert and oriented; behavior is cooperative, calm; dressed in casual attire; mood is described as better ; eye contact appropriate; Speech is normal rate, volume and not pressured; thought process is organized and goal directed; Thought content is on tx and discharge; denies SI/HI/VH/AH Diagnostics Vital Signs (24Hr): Vital Signs - 24 hr 05/06/24 15:14 05/06/24 20:50 05/07/24 06:29 Temperature 98.7 F 98.8 F Pulse Rate 61 68 Respiratory Rate 18 16 Blood Pressure 139/78 150/78 H 157/95 H Pulse Oximetry 95 96 Oxygen Delivery Method Room Air Room Air 05/07/24 07:15 05/07/24 08:15 Temperature 98.3 F Pulse Rate 60 Respiratory Rate 14 Blood Pressure 137/36 L 137/76 Pulse Oximetry 95 Oxygen Delivery Method Room Air BMI result Body Mass Index 31.9 Labs 05/05/24 07:39 05/05/24 07:39 Labs: Laboratory Results - last 48 hr 05/05/24 05/05/24 05/05/24 15:39 17:00 20:15 POC Glucose 229 H 215 H 279 H 05/06/24 05/06/24 05/06/24 07:30 16:27 20:56 POC Glucose 199 H 279 H 265 H 05/07/24 07:54 POC Glucose 224 H Imaging Radiology Impressions: [facility] Impressions Head CT 05/01/24 08:49 IMPRESSION: 1. No acute intracranial abnormalities. No fracture seen. 2. Mild bilateral frontal lobe atrophy. 3. Paranasal sinus disease maxillary and ethmoid sinuses. No definite air-fluid levels. Electronically signed by: Meek Oliveira MD 05/01/2024 09:14 AM [facility] Medications Medications Current Medications Acetaminophen (Acetaminophen 325 Mg Tablet) 650 mg PO Q6H PRN PRN Reason: Headache/Pain Mild Scale (1-3) Last Admin: 05/03/24 21:18 Dose: 650 mg Al Hydroxide/Mg Hydroxide (Magnesium Hydrox/Alum Hydrox 30 Ml Oral.Susp) 30 ml PO Q6H PRN PRN Reason: Heartburn/Nausea Amlodipine Besylate (Amlodipine Besylate 10 Mg Tablet) 10 mg PO DAILY [facility]; Protocol Last Admin: 05/07/24 08:11 Dose: 10 mg Aspirin (Aspirin 81 Mg Tab.Chew) 81 mg PO DAILY [facility] Last Admin: 05/07/24 08:11 Dose: 81 mg Fenofibrate (Fenofibrate 160 Mg Tablet) 160 mg PO DAILY@0600 [facility] Last Admin: 05/07/24 06:33 Dose: 160 mg Gabapentin (Gabapentin 300 Mg Capsule) 300 mg PO TID@0600,1300,1800 [facility] Last Admin: 05/07/24 12:06 Dose: 300 mg Glipizide (Glipizide 5 Mg Tablet) 5 mg PO BID@0600,1800 [facility] Last Admin: 05/07/24 06:33 Dose: 5 mg Glucose (Glucose Gel 15 Gm Gel..Gram.) 15 gm PO Q15M PRN; Protocol PRN Reason: per Hypoglycemia Standing Ord. Hydralazine HCl (Hydralazine Hcl 10 Mg Tablet) 10 mg PO TID [facility]; Protocol Last Admin: 05/07/24 08:15 Dose: 10 mg Hydroxyzine HCl (Hydroxyzine Hcl 50 Mg Tablet) 50 mg PO BID@0600,1800 [facility] Last Admin: 05/07/24 06:33 Dose: 50 mg Dextrose (D10) 250 mls @ 750 mls/hr IV Q15M PRN; Protocol PRN Reason: per Hypoglycemia Standing Ord. Ibuprofen (Ibuprofen 600 Mg Tablet) 600 mg PO Q8H PRN PRN Reason: Pain, Moderate(Pain Scale 4-6) Last Admin: 05/04/24 21:26 Dose: 600 mg Insulin Glargine (Insulin Glargine,Hum.Rec.Anlog 100 Unit/Ml 10 Ml Vial) 10 unit SUBCUT BEDTIME [facility] Last Admin: 05/06/24 21:02 Dose: 10 unit Insulin Human Lispro (Insulin Lispro 100 Unit/Ml 3 Ml Vial) 0 unit SUBCUT BIDAC [facility]; Protocol Last Admin: 05/07/24 08:09 Dose: 4 unit Isosorbide Mononitrate (Isosorbide Mononitrate 30 Mg Tab.Er.24h) 30 mg PO DAILY@0600 [facility]; Protocol Last Admin: 05/07/24 06:33 Dose: 30 mg Lisinopril (Lisinopril 10 Mg Tablet) 10 mg PO DAILY [facility]; Protocol Last Admin: 05/07/24 08:11 Dose: 10 mg Magnesium Hydroxide (Milk Of Magnesia 30 Ml Oral.Susp) 30 ml PO DAILY PRN PRN Reason: Constipation Metoprolol Succinate (Metoprolol Succinate Er 50 Mg Tab.Er.24h) 50 mg PO DAILY@0600 [facility]; Protocol Last Admin: 05/07/24 06:32 Dose: 50 mg Nicotine (Nicotine 21 Mg Patch.Td24) 21 mg TRANSDERMA DAILY@06 [facility] Last Admin: 05/07/24 06:34 Dose: 21 mg Nicotine Polacrilex (Nicotine Polacrilex 2 Mg Gum) 4 mg BUCCAL Q2H PRN PRN Reason: Nicotine Cravings Omeprazole (Omeprazole 20 Mg Capsule.Dr) 20 mg PO DAILY@06 [facility] Last Admin: 05/07/24 06:34 Dose: 20 mg Ondansetron HCl (Ondansetron Odt 8 Mg Tab.Rapdis) 8 mg TRANSLINGU Q12H PRN PRN Reason: Nausea and Vomiting Last Admin: 05/01/24 11:50 Dose: 8 mg Quetiapine Fumarate (Quetiapine Fumarate 200 Mg Tablet) 200 mg PO BEDTIME [facility] Last Admin: 05/06/24 21:08 Dose: 200 mg Sertraline HCl (Sertraline Hcl 25 Mg Tablet) 75 mg PO DAILY@0600 [facility] Last Admin: 05/07/24 06:31 Dose: 75 mg Thiamine HCl (Thiamine Hcl 100 Mg Tablet) 100 mg PO DAILY@0600 [facility] Last Admin: 05/07/24 06:34 Dose: 100 mg Trazodone HCl (Trazodone Hcl 100 Mg Tablet) 200 mg PO BEDTIME PRN PRN Reason: Insomnia Last Admin: 05/06/24 21:08 Dose: 200 mg Allergies Allergies Allergy/AdvReac Type Severity Reaction Status Date / Time morphine Allergy Unknown Verified 04/30/24 15:21 Penicillins Allergy Unknown Verified 04/30/24 15:20 Assessment & Plan Assessment & Plan (1) MDD (major depressive disorder), recurrent episode, severe: Status: Acute Code(s): F33.2 - Major depressive disorder, recurrent severe without psychotic features (2) Alcohol use disorder: Status: Acute Code(s): F10.90 - Alcohol use, unspecified, uncomplicated Plan Patient is a 63-year-old male with history MDD and alcohol use disorder who presented to [facility] ER via ambulance due to suicidal ideation and alcohol use. Called [facility] nurse and stating he wanted to kill himself. Plan: CV 1:1 Continue home medications CIWA protocol Obtain collateral Encourage groups Consult to PT to determine need for walker Consult to addiction medicine Discharge planning 05/02: Continues similar to yesterday. continues scoring on CIWA. disheveled. patient in and out falling asleep. Difficult to understand at times due to low volume in speech and mumbling. Pt stated he just wants to sleep ; will continue on CIWA. Decrease hydroxyzine to 50mg PO BID. 05/03 the nursing staff reported that he start scoring lower on the CIWA still at fall risk on one-to-one. We are changing the CIWA to q.4 hours. 05/04 blood work and UA continue same treatment. 05/05:Active on unit, utilizing walker. awaiting PT consult. tearful, reports feeling depressed and anxious ; pt stated, I'm anxious about my situation and what will happen after here . Pt reports [facility] . denies SI/HI/VH/AH. DC CIWA; pt no longer in alcohol withdrawal. Decrease gabapentin back to home dose of 300mg PO TID. Increase Sertraline to 75mg PO daily 05/06: Pt continues to report feeling depressed ; pt stated, I'm worried about going home and drinking again because I'll be alone . Discussed possibly staying with family until he can follow up with [facility] services. denies SI/HI/VH/AH. encouraged to attend groups. Continue current tx plan. 05/07: Active on unit. Patient reports feeling better today; pt reports he plans on going back to his home on discharge and waiting for [facility] services . Patient reports he plans on maintaining his sobriety with the help if his family; pt stated, I'm sure they will keep popping into my house . denies SI/HI/VH/AH. Plan to discharge home Sunday if continues to improve. continue current tx plan. Patient educated on: diagnosis, medication risk/benefits and therapeutic strategies Reason for continued inpatient stay Substantial Risk for: med/psych decompensation Time Spent With Patient Time: Total time managing care of this patient today _20___ minutes.
[2024-05-07 16:36] LABS: Glucose, Whole Blood 235 mg/dL (60-115)
[2024-05-07 20:13] LABS: Glucose, Whole Blood 358 mg/dL (60-115)
[2024-05-07] MEDS: Insulin Glargine,Hum.rec.anlog 100 UNIT/ML 10 ML VIAL 10 UNIT SUBCUT (20:20)
[2024-05-07] MEDS: QUEtiapine Fumarate 200 MG TABLET PO (20:21)
[2024-05-07] MEDS: traZODone HCL 100 MG TABLET 200 MG PO (20:26)
[2024-05-08] VITALS (9 sets, daily range): BP systolic 119–143; BP diastolic 63–75; PULSE 55–74; RESP 12; TEMP 36.1–36.4; O2SAT 95–96; BMI 33.1
[2024-05-08] MEDS: Nicotine 21 MG PATCH.TD24 TRANSDERMA (06:11)
[2024-05-08] MEDS: Fenofibrate 160 MG TABLET PO (06:13)
[2024-05-08] MEDS: Sertraline HCL 25 MG TABLET 75 MG PO (06:13)
[2024-05-08] MEDS: Isosorbide Mononitrate 30 MG TAB.ER.24H PO (06:13)
[2024-05-08] MEDS: Thiamine HCL 100 MG TABLET PO (06:13)
[2024-05-08] MEDS: glipiZIDE 5 MG TABLET PO ×2 (06:14→17:36)
[2024-05-08] MEDS: hydrOXYzine HCL 50 MG TABLET PO ×2 (06:14→17:38)
[2024-05-08] MEDS: Metoprolol Succinate ER 50 MG TAB.ER.24H PO (06:14)
[2024-05-08] MEDS: Omeprazole 20 MG CAPSULE.DR PO (06:14)
[2024-05-08] MEDS: Gabapentin 300 MG CAPSULE PO ×3 (06:20→17:40)
[2024-05-08 07:57] LABS: Glucose, Whole Blood 275 mg/dL (60-115)
[2024-05-08] MEDS: hydrALAZINE HCl 10 MG TABLET PO ×3 (08:38→20:47)
[2024-05-08] MEDS: amLODIPine Besylate 10 MG TABLET PO (08:38)
[2024-05-08] MEDS: Aspirin 81 MG TAB.CHEW PO (08:39)
[2024-05-08] MEDS: lisinopriL 10 MG TABLET PO (08:39)
[2024-05-08] MEDS: Insulin Lispro 100 UNIT/ML 3 ML VIAL SUBCUT ×2 (08:39→17:09)
[2024-05-08] MEDS: Ibuprofen 600 MG TABLET PO (10:47)
--- NOTE | 2024-05-08 14:30 | HO.PSYCHPN ---
Subjective Subjective Date of Service: 05/08/24 Reason For Visit: Unspec depressive disorder, unspec alcohol use d/o Subjective Notes: Conditional Voluntary Interim History: Patient reports feeling alright today; pt stated, I feel a bit anxious and depressed but its tolerable . Patient reports he plans on following up with his outpatient providers. denies SI/HI/VH/AH. Pt states his sister is to pick him up from the hospital. Medication Compliance: Yes Side effects from medications: No Attending Groups: Yes Review of Systems Constitutional: Reports as per HPI Eyes: Reports as per HPI Reports as per HPI Cardiovascular: Reports as per HPI Respiratory: Reports as per HPI Gastrointestinal: Reports as per HPI Genitourinary: Reports as per HPI Musculoskeletal: Reports as per HPI Skin/Breast: Reports as per HPI Reports as per HPI Psychiatric: Reports as per HPI Endocrine: Reports as per HPI Hematologic/Lymphatic: Reports as per HPI Allergic/Immunologic: Reports as per HPI Mental Status Exam Mental Status Exam Narrative: Pt is alert and oriented; behavior is cooperative, calm; dressed in casual attire; mood is described as alright ; eye contact appropriate; Speech is normal rate, volume and not pressured; thought process is organized and goal directed; Thought content is on discharge; denies SI/HI/VH/AH Diagnostics Vital Signs (24Hr): Vital Signs - 24 hr 05/07/24 15:30 05/07/24 15:33 05/07/24 19:47 Temperature 98.3 F 98.7 F Pulse Rate 72 62 Respiratory Rate 15 18 Blood Pressure 136/69 136/69 139/69 Pulse Oximetry 96 95 Oxygen Delivery Method Room Air Room Air 05/07/24 20:21 05/08/24 06:13 05/08/24 06:14 Temperature Pulse Rate 71 Respiratory Rate Blood Pressure 139/70 119/75 119/75 Pulse Oximetry Oxygen Delivery Method 05/08/24 07:05 05/08/24 08:38 05/08/24 08:38 Temperature 96.9 F Pulse Rate 55 Respiratory Rate 12 Blood Pressure 129/68 129/68 129/68 Pulse Oximetry 95 Oxygen Delivery Method Room Air 05/08/24 08:39 05/08/24 12:44 Temperature Pulse Rate Respiratory Rate Blood Pressure 129/68 129/68 Pulse Oximetry Oxygen Delivery Method BMI result Body Mass Index 33.1 Labs 05/05/24 07:39 05/05/24 07:39 Labs: Laboratory Results - last 48 hr 05/06/24 05/06/24 05/07/24 16:27 20:56 07:54 POC Glucose 279 H 265 H 224 H 05/07/24 05/07/24 05/08/24 16:32 20:08 07:39 POC Glucose 235 H 358 H* 275 H Imaging Radiology Impressions: ITS Impressions Head CT 05/01/24 08:49 IMPRESSION: 1. No acute intracranial abnormalities. No fracture seen. 2. Mild bilateral frontal lobe atrophy. 3. Paranasal sinus disease maxillary and ethmoid sinuses. No definite air-fluid levels. Electronically signed by: Meek Oliveira MD 05/01/2024 09:14 [place] [facility] [place] Medications Current Medications Acetaminophen (Acetaminophen 325 Mg Tablet) 650 mg PO Q6H PRN PRN Reason: Headache/Pain Mild Scale (1-3) Last Admin: 05/03/24 21:18 Dose: 650 mg Al Hydroxide/Mg Hydroxide (Magnesium Hydrox/Alum Hydrox 30 Ml Oral.Susp) 30 ml PO Q6H PRN PRN Reason: Heartburn/Nausea Amlodipine Besylate (Amlodipine Besylate 10 Mg Tablet) 10 mg PO DAILY [facility]; Protocol Last Admin: 05/08/24 08:38 Dose: 10 mg Aspirin (Aspirin 81 Mg Tab.Chew) 81 mg PO DAILY [facility] Last Admin: 05/08/24 08:39 Dose: 81 mg Fenofibrate (Fenofibrate 160 Mg Tablet) 160 mg PO DAILY@0600 [facility] Last Admin: 05/08/24 06:13 Dose: 160 mg Gabapentin (Gabapentin 300 Mg Capsule) 300 mg PO TID@0600,1300,1800 [facility] Last Admin: 05/08/24 13:10 Dose: 300 mg Glipizide (Glipizide 5 Mg Tablet) 5 mg PO BID@0600,1800 [facility] Last Admin: 05/08/24 06:14 Dose: 5 mg Glucose (Glucose Gel 15 Gm Gel..Gram.) 15 gm PO Q15M PRN; Protocol PRN Reason: per Hypoglycemia Standing Ord. Hydralazine HCl (Hydralazine Hcl 10 Mg Tablet) 10 mg PO TID [facility]; Protocol Last Admin: 05/08/24 08:38 Dose: 10 mg Hydroxyzine HCl (Hydroxyzine Hcl 50 Mg Tablet) 50 mg PO BID@0600,1800 [facility] Last Admin: 05/08/24 06:14 Dose: 50 mg Dextrose (D10) 250 mls @ 750 mls/hr IV Q15M PRN; Protocol PRN Reason: per Hypoglycemia Standing Ord. Ibuprofen (Ibuprofen 600 Mg Tablet) 600 mg PO Q8H PRN PRN Reason: Pain, Moderate(Pain Scale 4-6) Last Admin: 05/08/24 10:47 Dose: 600 mg Insulin Glargine (Insulin Glargine,Hum.Rec.Anlog 100 Unit/Ml 10 Ml Vial) 10 unit SUBCUT BEDTIME [facility] Last Admin: 05/07/24 20:20 Dose: 10 unit Insulin Human Lispro (Insulin Lispro 100 Unit/Ml 3 Ml Vial) 0 unit SUBCUT BIDAC [facility]; Protocol Last Admin: 05/08/24 08:39 Dose: 6 unit Isosorbide Mononitrate (Isosorbide Mononitrate 30 Mg Tab.Er.24h) 30 mg PO DAILY@0600 [facility]; Protocol Last Admin: 05/08/24 06:13 Dose: 30 mg Lisinopril (Lisinopril 10 Mg Tablet) 10 mg PO DAILY [facility]; Protocol Last Admin: 05/08/24 08:39 Dose: 10 mg Magnesium Hydroxide (Milk Of Magnesia 30 Ml Oral.Susp) 30 ml PO DAILY PRN PRN Reason: Constipation Metoprolol Succinate (Metoprolol Succinate Er 50 Mg Tab.Er.24h) 50 mg PO DAILY@0600 [facility]; Protocol Last Admin: 05/08/24 06:14 Dose: 50 mg Nicotine (Nicotine 21 Mg Patch.Td24) 21 mg TRANSDERMA DAILY@06 [facility] Last Admin: 05/08/24 06:11 Dose: 21 mg Nicotine Polacrilex (Nicotine Polacrilex 2 Mg Gum) 4 mg BUCCAL Q2H PRN PRN Reason: Nicotine Cravings Omeprazole (Omeprazole 20 Mg Capsule.Dr) 20 mg PO DAILY@06 [facility] Last Admin: 05/08/24 06:14 Dose: 20 mg Ondansetron HCl (Ondansetron Odt 8 Mg Tab.Rapdis) 8 mg TRANSLINGU Q12H PRN PRN Reason: Nausea and Vomiting Last Admin: 05/01/24 11:50 Dose: 8 mg Quetiapine Fumarate (Quetiapine Fumarate 200 Mg Tablet) 200 mg PO BEDTIME [facility] Last Admin: 05/07/24 20:21 Dose: 200 mg Sertraline HCl (Sertraline Hcl 25 Mg Tablet) 75 mg PO DAILY@0600 [facility] Last Admin: 05/08/24 06:13 Dose: 75 mg Thiamine HCl (Thiamine Hcl 100 Mg Tablet) 100 mg PO DAILY@0600 [facility] Last Admin: 05/08/24 06:13 Dose: 100 mg Trazodone HCl (Trazodone Hcl 100 Mg Tablet) 200 mg PO BEDTIME PRN PRN Reason: Insomnia Last Admin: 05/07/24 20:26 Dose: 200 mg Allergies Allergies Allergy/AdvReac Type Severity Reaction Status Date / Time morphine Allergy Unknown Verified 04/30/24 15:21 Penicillins Allergy Unknown Verified 04/30/24 15:20 Assessment & Plan Assessment & Plan (1) MDD (major depressive disorder), recurrent episode, severe: Status: Acute Code(s): F33.2 - Major depressive disorder, recurrent severe without psychotic features (2) Alcohol use disorder: Status: Acute Code(s): F10.90 - Alcohol use, unspecified, uncomplicated Plan Patient is a 63-year-old male with history MDD and alcohol use disorder who presented to [facility] ER via ambulance due to suicidal ideation and alcohol use. Called [place] nurse and stating he wanted to kill himself. Plan: CV 1:1 Continue home medications CIWA protocol Obtain collateral Encourage groups Consult to PT to determine need for walker Consult to addiction medicine Discharge planning 05/02: Continues similar to yesterday. continues scoring on CIWA. disheveled. patient in and out falling asleep. Difficult to understand at times due to low volume in speech and mumbling. Pt stated he just wants to sleep ; will continue on CIWA. Decrease hydroxyzine to 50mg PO BID. 05/03 the nursing staff reported that he start scoring lower on the CIWA still at fall risk on one-to-one. We are changing the CIWA to q.4 hours. 05/04 blood work and UA continue same treatment. 05/05:Active on unit, utilizing walker. awaiting PT consult. tearful, reports feeling depressed and anxious ; pt stated, I'm anxious about my situation and what will happen after here . Pt reports [facility] . denies SI/HI/VH/AH. DC CIWA; pt no longer in alcohol withdrawal. Decrease gabapentin back to home dose of 300mg PO TID. Increase Sertraline to 75mg PO daily 05/06: Pt continues to report feeling depressed ; pt stated, I'm worried about going home and drinking again because I'll be alone . Discussed possibly staying with family until he can follow up with [facility]. denies SI/HI/VH/AH. encouraged to attend groups. Continue current tx plan. 05/07: Active on unit. Patient reports feeling better today; pt reports he plans on going back to his home on discharge and waiting for [facility] services . Patient reports he plans on maintaining his sobriety with the help if his family; pt stated, I'm sure they will keep popping into my house . denies SI/HI/VH/AH. Plan to discharge home Sunday if continues to improve. continue current tx plan. 05/08: Patient reports feeling alright today; pt stated, I feel a bit anxious and depressed but its tolerable . Patient reports he plans on following up with his outpatient providers. denies SI/HI/VH/AH. Pt states his sister is to pick him up from the hospital. Patient educated on: diagnosis and medication risk/benefits Reason for continued inpatient stay Substantial Risk for: stable for discharge Time Spent With Patient Time: Total time managing care of this patient today _20___ minutes.
[2024-05-08 17:08] LABS: Glucose, Whole Blood 352 mg/dL (60-115)
[2024-05-08 20:39] LABS: Glucose, Whole Blood 370 mg/dL (60-115)
[2024-05-08] MEDS: Insulin Glargine,Hum.rec.anlog 100 UNIT/ML 10 ML VIAL 10 UNIT SUBCUT (20:46)
[2024-05-08] MEDS: QUEtiapine Fumarate 200 MG TABLET PO (20:47)
[2024-05-08] MEDS: traZODone HCL 100 MG TABLET 200 MG PO (20:50)
[2024-05-09] MEDS: Nicotine 21 MG PATCH.TD24 TRANSDERMA (06:11)
[2024-05-09] MEDS: glipiZIDE 5 MG TABLET PO (06:12)
[2024-05-09] MEDS: Fenofibrate 160 MG TABLET PO (06:12)
[2024-05-09] MEDS: Isosorbide Mononitrate 30 MG TAB.ER.24H PO (06:13)
[2024-05-09] MEDS: hydrOXYzine HCL 50 MG TABLET PO (06:13)
[2024-05-09] MEDS: Metoprolol Succinate ER 50 MG TAB.ER.24H PO (06:13)
[2024-05-09] MEDS: Thiamine HCL 100 MG TABLET PO (06:13)
[2024-05-09] MEDS: Sertraline HCL 25 MG TABLET 75 MG PO (06:13)
[2024-05-09] MEDS: Omeprazole 20 MG CAPSULE.DR PO (06:14)
[2024-05-09] MEDS: Gabapentin 300 MG CAPSULE PO (06:27)
[2024-05-09 07:10] VITALS: BP 131/69; PULSE 62; RESP 14; TEMP 36.4; O2SAT 96
[2024-05-09 08:13] LABS: Glucose, Whole Blood 309 mg/dL (60-115)
[2024-05-09] MEDS: Aspirin 81 MG TAB.CHEW PO (09:02)
[2024-05-09] MEDS: hydrALAZINE HCl 10 MG TABLET PO (09:02)
[2024-05-09] MEDS: lisinopriL 10 MG TABLET PO (09:02)
[2024-05-09] MEDS: amLODIPine Besylate 10 MG TABLET PO (09:03)
[2024-05-09] MEDS: Insulin Lispro 100 UNIT/ML 3 ML VIAL SUBCUT (09:03)
--- NOTE | 2024-05-09 09:06 | PM.PSYDC ---
DS: Providers Provider Date of Service: 05/09/24 Date of admission: 04/30/24 14:47 Date of discharge: 05/09/24 Primary care physician: MOMO Escalona Admitting clinician: Tammy Katz Attending physician on admission: Goran Larry Consults: 04/30/24 15:22 Consult to Hospitalist Routine Comment: Consulting Provider: [facility] Hospital[facility] Reason For Exam: new admit, H&P 04/30/24 17:42 Addiction Medicine Routine Consulting Provider: Addiction Covering Reason for consultation: drinks 2 pints a day 05/01/24 06:50 Consult to Hospitalist Stat Comment: Consulting Provider: [facility] Hospital[facility] Reason For Exam: Unwitnessed fall 05/01/24 15:10 Addiction Medicine Routine Consulting Provider: Addiction Covering Reason for consultation: ?addictions recovery specialist, ?naltrexone/antabuse 05/02/24 15:31 Consult to Hospitalist Routine Comment: Consulting Provider: [facility] Hospital[facility] Reason For Exam: low O2 level;? need for oxygen, had in ER Attending physician on discharge: Winston Burr Discharging clinician: Tammy Katz DS: Diagnosis Discharge Diagnosis (1) MDD (major depressive disorder), recurrent episode, severe: Status: Acute (2) Alcohol use disorder: Status: Acute DS: Medications Discharge Medications Home Medications: Home Medications ?Medication ?Instructions ?Recorded ?Confirmed fenofibrate nanocrystallized 145 145 mg PO DAILY 04/30/24 04/30/24 mg tablet gabapentin 300 mg capsule 300 mg PO TID 04/30/24 04/30/24 glipizide 5 mg tablet 5 mg PO BID 04/30/24 04/30/24 hydroxyzine pamoate 50 mg capsule 50 mg PO TID 04/30/24 04/30/24 insulin glargine-yfgn 100 unit/mL 10 unit subcut BEDTIME 04/30/24 04/30/24 (3 mL) subcutaneous pen (Semglee (insulin glargine-yfgn) Pen) isosorbide mononitrate 30 mg 30 mg PO QAM 04/30/24 04/30/24 tablet,extended release 24 hr metoprolol succinate 50 mg 50 mg PO DAILY 04/30/24 04/30/24 tablet,extended release 24 hr pantoprazole 40 mg tablet,delayed 40 mg PO DAILY acid reflux 04/30/24 04/30/24 release quetiapine 200 mg tablet 200 mg PO BEDTIME 04/30/24 04/30/24 trazodone 100 mg tablet 200 mg PO BEDTIME 04/30/24 04/30/24 Previous Rx's ?Medication ?Instructions ?Recorded amlodipine 10 mg tablet 10 mg PO DAILY 30 days #30 tabs 05/08/24 sertraline 25 mg tablet 75 mg (3 x 25 mg) PO DAILY@0600 7 05/08/24 days #21 tabs Mental Status Exam Mental Status Exam Narrative: Pt is alert and oriented; behavior is cooperative, calm; dressed in casual attire; mood is described as good ; eye contact appropriate; Speech is normal rate, volume and not pressured; thought process is organized and goal directed; Thought content is on discharge; denies SI/HI/VH/AH Data Data Completed and Pending Completed studies during hospitalization [Text1]: 05/02/24 05/02/24 05/02/24 11:52 16:43 20:21 WBC RBC Hgb Hct MCV MCH MCHC RDW Plt Count MPV Immature Gran % (Auto) Neut % (Auto) Lymph % (Auto) [place] % (Auto) Eos % (Auto) Baso % (Auto) Lymph # (Auto) [place] # (Auto) Eos # (Auto) Baso # (Auto) Abs Immat Gran (auto) Absolute Neuts (auto) Absolute Nucleated RBC Nucleated RBC % (auto) Sodium Potassium Chloride Carbon Dioxide Anion Gap BUN Creatinine Estim Creat Clear Calc Estimated GFR POC Glucose 169 H 118 H 143 H Random Glucose Calcium TSH Urine Color Urine Appearance Urine pH Ur Specific [place] Urine Protein Urine Glucose (UA) Urine Ketones Urine Blood Urine Nitrite Ur Leukocyte Esterase Urine RBC Urine WBC Ur Squamous Epith Cells Urine Bacteria Hyaline Casts 05/03/24 05/03/24 05/03/24 05:48 07:39 11:57 WBC RBC Hgb Hct MCV MCH MCHC RDW Plt Count MPV Immature Gran % (Auto) Neut % (Auto) Lymph % (Auto) [place] % (Auto) Eos % (Auto) Baso % (Auto) Lymph # (Auto) [place] # (Auto) Eos # (Auto) Baso # (Auto) Abs Immat Gran (auto) Absolute Neuts (auto) Absolute Nucleated RBC Nucleated RBC % (auto) Sodium Potassium Chloride Carbon Dioxide Anion Gap BUN Creatinine Estim Creat Clear Calc Estimated GFR POC Glucose 170 H 135 H 184 H Random Glucose Calcium TSH Urine Color Urine Appearance Urine pH Ur Specific [place] Urine Protein Urine Glucose (UA) Urine Ketones Urine Blood Urine Nitrite Ur Leukocyte Esterase Urine RBC Urine WBC Ur Squamous Epith Cells Urine Bacteria Hyaline Casts 05/03/24 05/03/24 05/04/24 16:59 20:43 07:34 WBC RBC Hgb Hct MCV MCH MCHC RDW Plt Count MPV Immature Gran % (Auto) Neut % (Auto) Lymph % (Auto) [place] % (Auto) Eos % (Auto) Baso % (Auto) Lymph # (Auto) [place] # (Auto) Eos # (Auto) Baso # (Auto) Abs Immat Gran (auto) Absolute Neuts (auto) Absolute Nucleated RBC Nucleated RBC % (auto) Sodium Potassium Chloride Carbon Dioxide Anion Gap BUN Creatinine Estim Creat Clear Calc Estimated GFR POC Glucose 147 H 234 H 138 H Random Glucose Calcium TSH Urine Color Urine Appearance Urine pH Ur Specific [place] Urine Protein Urine Glucose (UA) Urine Ketones Urine Blood Urine Nitrite Ur Leukocyte Esterase Urine RBC Urine WBC Ur Squamous Epith Cells Urine Bacteria Hyaline Casts 05/04/24 05/04/24 05/04/24 12:04 16:50 20:10 WBC RBC Hgb Hct MCV MCH MCHC RDW Plt Count MPV Immature Gran % (Auto) Neut % (Auto) Lymph % (Auto) [place] % (Auto) Eos % (Auto) Baso % (Auto) Lymph # (Auto) [place] # (Auto) Eos # (Auto) Baso # (Auto) Abs Immat Gran (auto) Absolute Neuts (auto) Absolute Nucleated RBC Nucleated RBC % (auto) Sodium Potassium Chloride Carbon Dioxide Anion Gap BUN Creatinine Estim Creat Clear Calc Estimated GFR POC Glucose 146 H 185 H Random Glucose Calcium TSH Urine Color Yellow Urine Appearance Clear Urine pH 6.5 Ur Specific [place] 1.010 Urine Protein Negative Urine Glucose (UA) Negative Urine Ketones Negative Urine Blood Negative Urine Nitrite Negative Ur Leukocyte Esterase Negative Urine RBC 0-2 Urine WBC 0-5 Ur Squamous Epith Cells 0-2 Urine Bacteria None Seen Hyaline Casts 0-2 05/04/24 05/05/24 05/05/24 20:16 07:17 07:39 WBC 6.1 RBC 4.72 Hgb 12.5 L Hct 38.1 L MCV 80.7 MCH 26.5 L MCHC 32.8 RDW 17.1 H Plt Count 177 MPV 9.1 L Immature Gran % (Auto) 0.5 H Neut % (Auto) 58.0 Lymph % (Auto) 27.8 [place] % (Auto) 9.8 Eos % (Auto) 2.6 Baso % (Auto) 1.3 Lymph # (Auto) 1.7 [place] # (Auto) 0.6 Eos # (Auto) 0.2 Baso # (Auto) 0.1 Abs Immat Gran (auto) 0.03 Absolute Neuts (auto) 3.6 Absolute Nucleated RBC 0.000 Nucleated RBC % (auto) 0.0 Sodium 140 Potassium 4.2 Chloride 107 Carbon Dioxide 24 Anion Gap 13 BUN 19 H Creatinine 1.16 Estim Creat Clear Calc 78.5 Estimated GFR > 60 POC Glucose 182 H 151 H Random Glucose 161 H Calcium 9.6 D TSH 3.41 Urine Color Urine Appearance Urine pH Ur Specific [place] Urine Protein Urine Glucose (UA) Urine Ketones Urine Blood Urine Nitrite Ur Leukocyte Esterase Urine RBC Urine WBC Ur Squamous Epith Cells Urine Bacteria Hyaline Casts 05/05/24 05/05/24 05/05/24 15:39 17:00 20:15 WBC RBC Hgb Hct MCV MCH MCHC RDW Plt Count MPV Immature Gran % (Auto) Neut % (Auto) Lymph % (Auto) [place] % (Auto) Eos % (Auto) Baso % (Auto) Lymph # (Auto) [place] # (Auto) Eos # (Auto) Baso # (Auto) Abs Immat Gran (auto) Absolute Neuts (auto) Absolute Nucleated RBC Nucleated RBC % (auto) Sodium Potassium Chloride Carbon Dioxide Anion Gap BUN Creatinine Estim Creat Clear Calc Estimated GFR POC Glucose 229 H 215 H 279 H Random Glucose Calcium TSH Urine Color Urine Appearance Urine pH Ur Specific [place] Urine Protein Urine Glucose (UA) Urine Ketones Urine Blood Urine Nitrite Ur Leukocyte Esterase Urine RBC Urine WBC Ur Squamous Epith Cells Urine Bacteria Hyaline Casts 05/06/24 05/06/24 05/06/24 07:30 16:27 20:56 WBC RBC Hgb Hct MCV MCH MCHC RDW Plt Count MPV Immature Gran % (Auto) Neut % (Auto) Lymph % (Auto) [place] % (Auto) Eos % (Auto) Baso % (Auto) Lymph # (Auto) [place] # (Auto) Eos # (Auto) Baso # (Auto) Abs Immat Gran (auto) Absolute Neuts (auto) Absolute Nucleated RBC Nucleated RBC % (auto) Sodium Potassium Chloride Carbon Dioxide Anion Gap BUN Creatinine Estim Creat Clear Calc Estimated GFR POC Glucose 199 H 279 H 265 H Random Glucose Calcium TSH Urine Color Urine Appearance Urine pH Ur Specific [place] Urine Protein Urine Glucose (UA) Urine Ketones Urine Blood Urine Nitrite Ur Leukocyte Esterase Urine RBC Urine WBC Ur Squamous Epith Cells Urine Bacteria Hyaline Casts 05/07/24 05/07/24 05/07/24 07:54 16:32 20:08 WBC RBC Hgb Hct MCV MCH MCHC RDW Plt Count MPV Immature Gran % (Auto) Neut % (Auto) Lymph % (Auto) [place] % (Auto) Eos % (Auto) Baso % (Auto) Lymph # (Auto) [place] # (Auto) Eos # (Auto) Baso # (Auto) Abs Immat Gran (auto) Absolute Neuts (auto) Absolute Nucleated RBC Nucleated RBC % (auto) Sodium Potassium Chloride Carbon Dioxide Anion Gap BUN Creatinine Estim Creat Clear Calc Estimated GFR POC Glucose 224 H 235 H 358 H* Random Glucose Calcium TSH Urine Color Urine Appearance Urine pH Ur Specific [place] Urine Protein Urine Glucose (UA) Urine Ketones Urine Blood Urine Nitrite Ur Leukocyte Esterase Urine RBC Urine WBC Ur Squamous Epith Cells Urine Bacteria Hyaline Casts 05/08/24 05/08/24 05/08/24 07:39 17:01 20:34 WBC RBC Hgb Hct MCV MCH MCHC RDW Plt Count MPV Immature Gran % (Auto) Neut % (Auto) Lymph % (Auto) [place] % (Auto) Eos % (Auto) Baso % (Auto) Lymph # (Auto) [place] # (Auto) Eos # (Auto) Baso # (Auto) Abs Immat Gran (auto) Absolute Neuts (auto) Absolute Nucleated RBC Nucleated RBC % (auto) Sodium Potassium Chloride Carbon Dioxide Anion Gap BUN Creatinine Estim Creat Clear Calc Estimated GFR POC Glucose 275 H 352 H* 370 H* Random Glucose Calcium TSH Urine Color Urine Appearance Urine pH Ur Specific [place] Urine Protein Urine Glucose (UA) Urine Ketones Urine Blood Urine Nitrite Ur Leukocyte Esterase Urine RBC Urine WBC Ur Squamous Epith Cells Urine Bacteria Hyaline Casts 05/09/24 08:04 WBC RBC Hgb Hct MCV MCH MCHC RDW Plt Count MPV Immature Gran % (Auto) Neut % (Auto) Lymph % (Auto) [place] % (Auto) Eos % (Auto) Baso % (Auto) Lymph # (Auto) [place] # (Auto) Eos # (Auto) Baso # (Auto) Abs Immat Gran (auto) Absolute Neuts (auto) Absolute Nucleated RBC Nucleated RBC % (auto) Sodium Potassium Chloride Carbon Dioxide Anion Gap BUN Creatinine Estim Creat Clear Calc Estimated GFR POC Glucose 309 H Random Glucose Calcium TSH Urine Color Urine Appearance Urine pH Ur Specific [place] Urine Protein Urine Glucose (UA) Urine Ketones Urine Blood Urine Nitrite Ur Leukocyte Esterase Urine RBC Urine WBC Ur Squamous Epith Cells Urine Bacteria Hyaline Casts Imaging Diagnostic Imaging Impressions Head CT 05/01/24 08:49 IMPRESSION: 1. No acute intracranial abnormalities. No fracture seen. 2. Mild bilateral frontal lobe atrophy. 3. Paranasal sinus disease maxillary and ethmoid sinuses. No definite air-fluid levels. Electronically signed by: Meek Oliveira MD 05/01/2024 09:14 AM [facility] DS: Summary Hospital Course Hospital Course: Patient is a 63-year-old male with history MDD and alcohol use disorder who presented to [facility] ER via ambulance due to suicidal ideation and alcohol use. Called [place] nurse and stating he wanted to kill himself. Per crisis report, patient reports he had a plan to take pills but denied intent. He reported drinking a pint and a half of rum prior to arrival to ED. patient reports drinking a pint and a half daily. History of suicide attempt a month ago via overdose on trazodone and Sudafed and was admitted to [facility]. When asked what triggered the intentional overdose patient stated the holidays . Denies [facility] During admission assessment, patient was in and out falling asleep. Difficult to understand at times due to mumbling. He reports depression and anxiety and states that when he is intoxicated he becomes suicidal. When discussing his sleep patient reports he usually passes out from drinking . He reports not eating well and forgetting to take his medications daily. He reports drinking a pt and a half of rum daily for the last 5 years. Denies any other substance use. History of alcohol withdrawal seizures. Currently on CIWA protocol. Per nursing patient has fallen twice in the last 24 hours; was placed on 1:1 and PT consult was placed to determine need for walker. Nursing to obtain orthos. Plan: CV 1:1 Continue home medications CIWA protocol Obtain collateral Encourage groups Consult to PT to determine need for walker Consult to addiction medicine Discharge planning Continues similar to yesterday. continues scoring on CIWA. disheveled. patient in and out falling asleep. Difficult to understand at times due to low volume in speech and mumbling. Pt stated he just wants to sleep ; will continue on CIWA. Decrease hydroxyzine to 50mg PO BID. the nursing staff reported that he start scoring lower on the CIWA still at fall risk on one-to-one. We are changing the CIWA to q.4 hours. blood work and UA continue same treatment. Active on unit, utilizing walker. awaiting PT consult. tearful, reports feeling depressed and anxious ; pt stated, I'm anxious about my situation and what will happen after here . Pt reports [facility] . denies SI/HI/VH/AH. DC CIWA; pt no longer in alcohol withdrawal. Decrease gabapentin back to home dose of 300mg PO TID. Increase Sertraline to 75mg PO daily Pt continues to report feeling depressed ; pt stated, I'm worried about going home and drinking again because I'll be alone . Discussed possibly staying with family until he can follow up with [facility]. denies SI/HI/VH/AH. encouraged to attend groups. Continue current tx plan. Active on unit. Patient reports feeling better today; pt reports he plans on going back to his home on discharge and waiting for [facility] services . Patient reports he plans on maintaining his sobriety with the help if his family; pt stated, I'm sure they will keep popping into my house . denies SI/HI/VH/AH. Plan to discharge home Sunday if continues to improve. continue current tx plan. Patient reports feeling alright today; pt stated, I feel a bit anxious and depressed but its tolerable . Patient reports he plans on following up with his outpatient providers. denies SI/HI/VH/AH. Pt states his sister is to pick him up from the hospital. Status at Discharge Cognitive/behavioral status at discharge: Patient has insight and demonstrates good judgment in terms of wanting to pursue treatment. Patient has a safety plan that includes presenting to the closest ER or calling 911 if feeling unsafe. Functional status at discharge: independent ambulation Overall status at discharge: patient is back to baseline Time Spent with Patient Time attestation: Total time managing care of this patient today _20___ minutes. Time spent: Less than 30 minutes Discharge Plan Discharge Anticipated Discharge Date/Time: 05/09/24 10:00 Patient Disposition: Home, Self-Care Discharge Diagnosis: MDD, Alcohol use d/o Referrals: Brad Bal (Therapy) [Other] - 05/12/24 9:00 am (IN OFFICE APPOINTMENT) Brad Bla (Therapy) [Other] - 05/26/24 3:00 pm (IN OFFICE APPOINTMENT) Phuc Merino (Psychiatry) [Other] - 05/19/24 9:30 am (This will be a video appointment) Uyen Bautista PA [Primary Care Provider] - 1 Week (Please contact your primary care provider to schedule a follow up appt within 7-10 days of your discharge.) Discharge Medications: New amlodipine 10 mg Tablet 10 mg PO DAILY 30 Days Qty: 30 0RF Protocol: Hold for SBP< HOLD for SBP < : 90 sertraline 25 mg Tablet 75 mg PO DAILY@0600 7 Days Qty: 21 3RF Continued metoprolol succinate 50 mg tablet extended release 24 hr 50 mg PO DAILY isosorbide mononitrate 30 mg tablet extended release 24 hr 30 mg PO QAM quetiapine 200 mg tablet 200 mg PO BEDTIME hydroxyzine pamoate 50 mg capsule 50 mg PO TID trazodone 100 mg tablet 200 mg PO BEDTIME pantoprazole 40 mg tablet,delayed release (DR/EC) 40 mg PO DAILY gabapentin 300 mg capsule 300 mg PO TID glipizide 5 mg tablet 5 mg PO BID fenofibrate nanocrystallized 145 mg tablet 145 mg PO DAILY insulin glargine-yfgn [Semglee(insulin glarg-yfgn)Pen] 100 unit/mL (3 mL) insulin pen 10 unit subcut BEDTIME Discontinued isosorbide mononitrate 30 mg tablet extended release 24 hr 30 mg PO QAM melatonin 3 mg tablet 3 mg PO BEDTIME PRN (Reason: insomnia) sertraline 50 mg tablet 50 mg PO DAILY fenofibrate nanocrystallized 145 mg tablet 145 mg PO DAILY Discharge Orders: Discharge Order (Routine); Ordered 05/09/24 Ordered By: Tammy Katz Diet: Regular diet Activity on Discharge: As tolerated Stand Alone Forms: Patient Portal Discharge page, Community Support Print Language: Portuguese Care Plan Goals: Maintain mood and safe behaviors Take medications as prescribed Continue to pursue sobriety Practice coping skills Continue with outpatient providers and reach out to them as needed Health Concerns: Mood stability and behaviors Sobriety Follow up with PCP regarding high blood pressure Plan of Treatment: Follow up with your PCP, psychiatric provider and other outpatient providers regarding above concerns Take medications as prescribed Assessment: Patient has insight and demonstrates good judgment in terms of wanting to pursue treatment. Patient has a safety plan that includes presenting to the closest ER or calling 911 if feeling unsafe. Discharge Date/Time: 05/09/24 11:00
== END 2024-05-09 11:00 | disposition home or self-care (01) | DRG 885 ==
PROVIDERS: Psychiatry & Neurology Psychiatry; Admitting Provider Psychiatry & Neurology Psychiatry; PCP Physician Assistant Medical; Responsible Provider Registered Nurse; Visit Provider Psychiatry & Neurology Psychiatry
DX: F33.2 Major depressive disorder, recurrent severe without psychotic features (principal); F17.210 Nicotine dependence, cigarettes, uncomplicated; Z71.6 Tobacco abuse counseling; F10.20 Alcohol dependence, uncomplicated; G47.33 Obstructive sleep apnea (adult) (pediatric); I10 Essential (primary) hypertension; E78.5 Hyperlipidemia, unspecified; E11.42 Type 2 diabetes mellitus with diabetic polyneuropathy; Z79.4 Long term (current) use of insulin; Z79.84 Long term (current) use of oral hypoglycemic drugs; Z79.899 Other long term (current) drug therapy
CPT/HCPCS: 36415; 70450; 73502; 80048; 80053; 80061; 81001; 82947; 84443; 85025; 93005; 94660; 97116; 97162

== ENCOUNTER 2024-04-30 14:47 | Outpatient (BNV) | payer BC, SELFPAY | END 2024-05-01 08:49 | PROVIDERS: Admitting Provider Psychiatry & Neurology Psychiatry; PCP Physician Assistant Medical; Visit Provider Radiology Diagnostic Radiology | DX: S09.90XA Unspecified injury of head, initial encounter (principal) | CPT/HCPCS: 70450 ==

== ENCOUNTER 2024-04-30 14:47 | Outpatient (BNV) | payer OTHER, BC, SELFPAY | END 2024-05-03 18:50 | PROVIDERS: Admitting Provider Psychiatry & Neurology Psychiatry; PCP Physician Assistant Medical; Responsible Provider Registered Nurse; Visit Provider Radiology Diagnostic Radiology | DX: S79.912A Unspecified injury of left hip, initial encounter (principal) | CPT/HCPCS: 73502 ==

== ENCOUNTER → 2024-04-30 14:47 | Outpatient (BNV) | payer BC, SELFPAY | PROVIDERS: Admitting Provider Psychiatry & Neurology Psychiatry; PCP Physician Assistant Medical; Responsible Provider Registered Nurse; Visit Provider Registered Nurse | DX: F33.2 Major depressive disorder, recurrent severe without psychotic features (principal); F10.90 Alcohol use, unspecified, uncomplicated | CPT/HCPCS: 90792; 99231; 99232; 99238 ==

== ENCOUNTER → 2024-04-30 14:47 | Outpatient (BNV) | payer BC, SELFPAY | PROVIDERS: Admitting Provider Psychiatry & Neurology Psychiatry; PCP Physician Assistant Medical; Visit Provider Student in an Organized Health Care Education/Training Program | DX: I10 Essential (primary) hypertension (principal); E11.40 Type 2 diabetes mellitus with diabetic neuropathy, unspecified | CPT/HCPCS: 99222; 99499 ==